=== PATIENT | female | born 1950 | race Caucasian/White ===

== ENCOUNTER 2020-03-30 05:43 | Inpatient (IN) | payer BC, MEDICARE ==
[~2020-03-30] VITALS: Ht 157.5 cm; Wt 94.8 kg
[2020-03-30 05:43] VITALS: BP 157/83
--- NOTE | 2020-03-30 05:43 | NUR ---
ED Nurse Note: pt CAPRICE RA 858 from home c/o right leg pain 01/07 onset today 399. Pt slipped and fell in the bathroom. Pt reports she had prior tib/fib fracture in 2017. Pt is able to moves toes, denies tinlging, numbness. Pt denies impact to head, denies loss of conciousness.
[2020-03-30] MEDS ORDERED: LANTUS SOL100 UNIT/1 SUBQ (05:52)
[2020-03-30] MEDS ORDERED: VITAMIN D325 MC1 PO (05:52)
[2020-03-30] MEDS ORDERED: FOLIC ACID1 MG ORAL (05:52)
[2020-03-30] MEDS ORDERED: CRESTOR10 M2 ORAL (05:52)
[2020-03-30] MEDS ORDERED: RYBELSUS3 MG PO (05:52)
[2020-03-30] MEDS ORDERED: ACTOS45 MG ORAL (05:57)
--- NOTE | 2020-03-30 06:12 | Emergency Room Report ---
History of Present Illness General Chief Complaint: Pain Source: Patient Present Illness HPI The patient recently moved into an apartment. She was trying to urinate hovering over the toilet and slipped. She Ann she twisted her ankle or fell on her leg twisting it she is unable to walk because of pain. She fractured her tibia in 2019. She was in rehab after that and healed completely. She denies hitting her head or loss of consciousness. There is no hip or back pain. She denies numbness. This happened just before calling 911 and being transported by BLS. She reports the pain 02/07 at this time, aching. It is better when she is not trying to weight-bear or ambulate -which she cannot do. The patient is a type II diabetic but this is taking insulin. She denies polyuria or polydipsia. No fevers, chills, sore throat, chest pain, palpitations, nausea, vomiting, diarrhea, dysuria, abdominal pain, shortness of breath, rashes, depression, anxiety, visual changes, dizziness, headache. 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 [employer] Last Menstrual Period: UNK Now: No Reviewed Nursing Documentation: PMH: Agreed; PSxH: Agreed Nursing Documentation-PMH Past Medical History: No History, Except For Hx Diabetes: Yes - DM II Hx Cancer: Yes - L SIDED BREAST CANCER LUMPECTOMY Review of Systems All Other Systems: negative except mentioned in HPI Physical Exam Vital Signs Date Time Temp Pulse Resp B/P (MAP) Pulse Ox O2 Delivery O2 Flow Rate FiO2 03/30/20 05:36 98.1 103 20 157/83 (107) 99 Room Air Sp02 EP Interpretation: reviewed, normal General Appearance: well appearing, no apparent distress, GCS 15 Head: normocephalic, atraumatic Eyes: bilateral eye normal inspection, bilateral eye PERRL, bilateral eye EOMI ENT: moist mucus membranes Neck: normal inspection, full range of motion, supple, no bony tend Respiratory: chest non-tender, lungs clear, normal breath sounds Cardiovascular #1: regular rate, rhythm Cardiovascular #2: 2+ radial (R), 2+ dorsalis pedis (R) Gastrointestinal: normal inspection, normal bowel sounds, non tender, soft Genitourinary: no CVA tenderness Musculoskeletal: normal range of motion, no calf tenderness, tenderness - Ankle area no point or crepitance Neurologic: alert, distal neuro normal, grossly normal Psychiatric: judgement/insight normal, mood/affect normal Skin: normal color, no rash, warm/dry Medical Decision Making Diagnostic Impression: Primary Impression: Fall Qualified Codes: W19.XXXA - Unspecified fall, initial encounter Additional Impressions: Unable to ambulate Sprain of right lower leg Qualified Codes: S83.91XA - Sprain of unspecified site of right knee, initial encounter Diabetes Qualified Codes: E11.9 - Type 2 diabetes mellitus without complications; 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 Differential includes fracture, sprain or contusion. There is no evidence of DVT at this time. There was no loss of consciousness. X-rays are indicated and the patient states she can tolerate tramadol. No laboratory is indicated at this time. An Accu-Chek will be obtained. X-rays show osteopenia and old injury. Accucheck 89. Patient unable to ambulate with crutches. Pain is uncontrolled. Admit. counseling services director consult ordered. EKG sinus rhythm incomplete right bundle branch block left anterior fascicular block LVH. CBC normal. CMP with renal insufficiency. UA clear. Discussed with Dr. Doran. Laboratory Tests Test 03/30/20 06:13 03/30/20 08:55 03/30/20 09:35 03/30/20 16:55 POC Whole Blood Glucose 89 MG/DL (74-106) Pending White Blood Count 8.8 K/UL (4.8-10.8) Red Blood Count 4.72 M/UL (4.20-5.40) Hemoglobin 13.1 G/DL (12.0-16.0) Hematocrit 40.3 % (37.0-47.0) Mean Corpuscular Volume 86 FL (80-99) Mean Corpuscular Hemoglobin 27.7 PG (27.0-31.0) Mean Corpuscular Hemoglobin Concent 32.4 G/DL (32.0-36.0) Red Cell Distribution Width 14.9 % (11.6-14.8) H Platelet Count 253 K/UL (150-450) Mean Platelet Volume 7.1 FL (6.5-10.1) Neutrophils (%) (Auto) 78.2 % (45.0-75.0) H Lymphocytes (%) (Auto) 14.1 % (20.0-45.0) L Monocytes (%) (Auto) 6.1 % (1.0-10.0) Eosinophils (%) (Auto) 1.1 % (0.0-3.0) Basophils (%) (Auto) 0.6 % (0.0-2.0) Prothrombin Time 11.0 SEC (9.30-11.50) Prothrombin Time INR 1.0 (0.9-1.1) Activated Partial Thromboplast Time 26 SEC (23-33) Sodium Level 141 MMOL/L (136-145) Potassium Level 3.6 MMOL/L (3.5-5.1) Chloride Level 104 MMOL/L (98-107) Carbon Dioxide Level 25 MMOL/L (21-32) Blood Urea Nitrogen 30 mg/dL (7-18) H Creatinine 1.4 MG/DL (0.55-1.30) H Estimated Glomerular Filtration Rate 37.2 mL/min (>60) Glucose Level 97 MG/DL (74-106) Uric Acid 5.1 MG/DL (2.6-7.2) Calcium Level 9.5 MG/DL (8.5-10.1) Total Bilirubin 0.4 MG/DL (0.2-1.0) Aspartate Amino Transferase (AST) 20 U/L (15-37) Alanine Aminotransferase (ALT) 19 U/L (12-78) Alkaline Phosphatase 96 U/L (46-116) Total Creatine Kinase 173 U/L (26-308) Troponin I 0.000 ng/mL (0.000-0.056) C-Reactive Protein, Quantitative 0.8 mg/dL (0.00-0.90) Pro-B-Type Natriuretic Peptide 99 pg/mL (0-125) Total Protein 7.6 G/DL (6.4-8.2) Albumin 4.0 G/DL (3.4-5.0) Globulin 3.6 g/dL Albumin/Globulin Ratio 1.1 (1.0-2.7) Urine Color Pale yellow Urine Appearance Slightly cloudy Urine pH 5 (4.5-8.0) Urine Specific [place] 1.025 (1.005-1.035) Urine Protein 3+ (NEGATIVE) H Urine Glucose (UA) Negative (NEGATIVE) Urine Ketones 1+ (NEGATIVE) H Urine Blood 1+ (NEGATIVE) H Urine Nitrite Negative (NEGATIVE) Urine Bilirubin Negative (NEGATIVE) Urine Urobilinogen Normal MG/DL (0.0-1.0) Urine Leukocyte Esterase 2+ (NEGATIVE) H Urine RBC 0-2 /HPF (0 - 2) Urine WBC 2-4 /HPF (0 - 2) Urine Squamous Epithelial Cells Moderate /LPF (NONE/OCC) H Urine Bacteria Moderate /HPF (NONE) H Test 03/30/20 20:17 POC Whole Blood Glucose 102 MG/DL (74-106) EKG Diagnostic Results Rate: normal Rhythm: NSR ST Segments: no acute changes - Incomplete right bundle branch block left anterior fascicular block left ventricular hypertrophy Rhythm Strip Diag. Results EP Interpretation: yes Rhythm: NSR, no PVC's, no ectopy Other X-Ray Diagnostic Results Other X-Ray Diagnostic Results #1: X-Ray ordered: Right ankle # of Views/Limited Vs Complete: 3 View Indication: Pain EP Interpretation: Yes Interpretation: no dislocation, no soft tissue swelling, no fractures, other - Osteopenia and old injury Impression: Other Electronically Signed by: Electronically signed by Júnior Edwards MD Other X-Ray Diagnostic Results #2: X-Ray ordered: Right tib-fib # of Views/Limited Vs Complete: 2 View Indication: Pain EP Interpretation: Yes Interpretation: no dislocation, no soft tissue swelling, no fractures Impression: Other Electronically Signed by: Electronically signed by Júnior Edwards MD Other X-Ray Diagnostic Results #3: X-Ray ordered: Right foot # of Views/Limited Vs Complete: 3 View Indication: Pain EP Interpretation: Yes Interpretation: no dislocation, no soft tissue swelling, no fractures Impression: Other Electronically Signed by: Electronically signed by Júnior Ewdards MD Last Vital Signs Date Time Temp Pulse Resp B/P (MAP) Pulse Ox O2 Delivery O2 Flow Rate FiO2 03/30/20 21:00 Room Air 03/30/20 20:00 98.2 92 18 141/67 (91) 99 Status: improved Disposition: ADMITTED INPATIENT Condition: Serious Júnior Edwards MD Mar 30, 2020 06:12
[2020-03-30] MEDS ORDERED: traMADol 50mg tab ORAL ONE (06:15)
--- NOTE | 2020-03-30 06:25 | NUR ---
ED Nurse Note: donor technician at bedside performing xray foot/ankle
--- NOTE | 2020-03-30 07:01 | NUR ---
HAND-OFF: Report given to CHERRY Patricia. Endorsed care.
--- NOTE | 2020-03-30 07:05 | NUR ---
ED Nurse Note: Report received from CHERRY Hairston. Pt lying comfortably in bed with no signs of distress.
--- NOTE | 2020-03-30 07:19 | Diagnostic Imaging Report ---
EXAM: XR Right Tibia and Fibula, 2 Views CLINICAL HISTORY: TRAUMA TECHNIQUE: Frontal and lateral views of the right tibia and fibula. COMPARISON: No relevant prior studies available. FINDINGS: Severe generalized osteopenia. Alignment of bony structures is within normal limits. No definite radiographic evidence of acute fracture or dislocation. IMPRESSION: No radiographic evidence of acute fracture or dislocation. Severe generalized osteopenia.
--- NOTE | 2020-03-30 07:25 | NUR ---
ED Nurse Note: xray @ bedside
--- NOTE | 2020-03-30 07:27 | Diagnostic Imaging Report ---
EXAM: XR Right Ankle Complete, 3 Views CLINICAL HISTORY: TRAUMA TECHNIQUE: Frontal, lateral and oblique views of the right ankle. COMPARISON: No relevant prior studies available. FINDINGS: Generalized osteopenia. Alignment of bony structures is within normal limits. No radiographic evidence of acute fracture or dislocation. IMPRESSION: No acute fracture or dislocation. Significant generalized osteopenia.
--- NOTE | 2020-03-30 07:34 | NUR ---
ED Nurse Note: per ED MD, okay to give food with medication. [place] provided.
[2020-03-30 07:45] VITALS: BP 151/79
[2020-03-30 09:14] LABS: BASOPHILS % (AUTO) 0.6 % (0.0-2.0); EOSINOPHILS % (AUTO) 1.1 % (0.0-3.0); HEMATOCRIT 40.3 % (37.0-47.0); HEMOGLOBIN 13.1 G/DL (12.0-16.0); LYMPHOCYTES % (AUTO) 14.1 % (20.0-45.0); MEAN CORPUSCULAR VOLUME 86 FL (80-99); MONOCYTES % (AUTO) 6.1 % (1.0-10.0); NEUTROPHILS % (AUTO) 78.2 % (45.0-75.0); PLATELET COUNT 253 K/UL (150-450); RED BLOOD COUNT 4.72 M/UL (4.20-5.40); RED CELL DISTRIBUTION WIDTH 14.9 % (11.6-14.8); WHITE BLOOD COUNT 8.8 K/UL (4.8-10.8)
[2020-03-30 09:34] LABS: ALANINE AMINOTRANSFERASE 19 U/L (12-78); ALBUMIN/GLOBULIN RATIO 1.1 (1.0-2.7); ALKALINE PHOSPHATASE 96 U/L (46-116); ASPARTATE AMINO TRANSFERASE 20 U/L (15-37); BILIRUBIN,TOTAL 0.4 MG/DL (0.2-1.0); BLOOD UREA NITROGEN 30 mg/dL (7-18); CALCIUM 9.5 MG/DL (8.5-10.1); CARBON DIOXIDE 25 MMOL/L (21-32); CHLORIDE 104 MMOL/L (98-107); CREATINE KINASE 173 U/L (26-308); CREATININE 1.4 MG/DL (0.55-1.30); POTASSIUM 3.6 MMOL/L (3.5-5.1); SODIUM 141 MMOL/L (136-145)
--- NOTE | 2020-03-30 09:39 | NUR ---
Russell hernandez in EDM - 03/30/20 at 0940 by ALBERTA ED Nurse Note: Report given to CHERRY Greer on 3E
[2020-03-30 09:44] LABS: APPEARANCE,URINE SLIGHTLY CLOUDY; BILIRUBIN, URINE NEGATIVE (NEGATIVE); COLOR,URINE PALE YELLOW; GLUCOSE, URINE (UA) NEGATIVE (NEGATIVE); KETONES,URINE 1+ (NEGATIVE); LEUKOCYTE ESTERASE ,URINE 2+ (NEGATIVE); NITRITE,URINE NEGATIVE (NEGATIVE); PH,URINE 5 (4.5-8.0); PROTEIN,URINE 3+ (NEGATIVE); UROBILINOGEN,URINE NORMAL MG/DL (0.0-1.0)
--- NOTE | 2020-03-30 09:45 | NUR ---
ED Nurse Note: Report given to CHERRY Greer on 3E
[2020-03-30 10:15] VITALS: BP 130/70
--- NOTE | 2020-03-30 10:15 | NUR ---
ED Nurse Note: pt transferred safely to the unit.
--- NOTE | 2020-03-30 10:15 | NUR ---
NURSE NOTES: Received pt from ER and report from CHERRY Patricia. 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 Checked all belongings with pt. Pt alert and oriented, able to make needs known. RA, no respiratory distress noted. Pt c/o pain on right foot 11/07. Vital signs stable. Skin intact. No redness or swelling noted. [place] pt to room. Educated pt to use for assistance. pt verbalized understanding. Side rails upx2. Bed in low position, locked. Call light and needs within reach. Will follow up with Dr. Doran for admission orders and pain.
--- NOTE | 2020-03-30 10:43 | Diagnostic Imaging Report ---
EXAM: XR Right Foot Complete, 3 or More Views CLINICAL HISTORY: TRAUMA TECHNIQUE: Frontal, lateral and oblique views of the right foot. COMPARISON: None FINDINGS: Bones/joints: No displaced fracture or dislocation identified. Osteopenia. Degenerative changes of the right first MTP joint and interphalangeal joints. Soft tissues: Normal. Other: Vascular calcifications. IMPRESSION: No displaced fracture or dislocation identified.
--- NOTE | 2020-03-30 11:15 | History and Physical Report ---
DATE OF ADMISSION: 03/30/2020 TIME SEEN: At 10 a.m. CONSULTANTS: 1. Dalton Pollack MD. 2. Rocael Bains MD. CHIEF COMPLAINT: Fall, right leg pain, weakness, failure to thrive. BRIEF HISTORY: This is a 69-year-old female, who lives at home by herself. Apparently, was in the restroom, she slipped and then fell on her right leg, was weak, could not get up and was brought to [place], diagnosed with the above, and being admitted to medical floor. Currently, calm, in the ER [facility], no complaint otherwise. REVIEW OF SYSTEMS: No chest pain. No shortness of breath. No nausea, vomiting, or diarrhea. PAST MEDICAL HISTORY: Includes diabetes, breast cancer. PAST SURGICAL HISTORY: Hysterectomy and lumpectomy. MEDICATIONS: Include ibuprofen, tramadol, . ALLERGIES: [place]. SOCIAL HISTORY: No smoking. No alcohol. No intravenous drug abuse. FAMILY HISTORY: Noncontributory. PHYSICAL EXAMINATION: GENERAL: Calm, in the ER [place], oriented x3, slight distress secondary to pain. VITAL SIGNS: Temperature is 97 degrees, pulse , respirations 20, blood pressure 151/79. CARDIOVASCULAR: No murmur. LUNGS: Distant and clear. ABDOMEN: Bowel sounds positive. Nontender, nondistended. EXTREMITIES: No cyanosis or edema. NEUROLOGIC: The patient moves all extremities, slightly weak. LABORATORY DATA: Labs at this time CBC is normal. BMP shows BUN and creatinine is 30/1.4. INR is 1.0. Urinalysis is 3+ protein, 2+ leukocyte esterase. ASSESSMENT: Right leg pain, weak, status post fall, failure to thrive, urinary retention, UTI, diabetes, breast cancer. PLAN: 1. PT, OT, dietary followup. Pain control. 2. We will add ID and follow Dr. Sapp, and antibiotics per Infectious Disease. 3. We will continue blood pressure, blood sugar control. 4. We will continue to follow the patient. 5. CBC and BMP in the morning. Garfield Doran D.O. DR: KANG JOB#: [id number] CC:
--- NOTE | 2020-03-30 11:16 | Consultation ---
History of Present Illness General Date patient seen: Mar 30, 2020 Chief Complaint: Pain Referring physician: Espinoza Reason for Consultation: UTI Present Illness HPI Ms. Castaneda is a 69 yo female with PHMx of DM and Breast CA ( Status post resection) who presented to the ED after a fall. She reports that she feel while trying to urinate. She felt that she twisted her ankle. She does have a history of fracturing her right ankle last year. She denies dysuria, hematuria and polyuria. Her UA showed increased LE and some bacteria was seen. She denies, N/V/D abd, cough and SOB. ID was consulted for UTI PMHx DM Breast CA ( Status post resection) Right Ankle Fx 2018 SocHx Denies E/T/D FamHx Not contributory Allergies: Coded Allergies: No Known Allergies (Unverified , 03/30/20) Medication History Scheduled Cholecalciferol (Vitamin D3) (Vitamin D3*), 25 MCG PO DAILY, (Reported) Folic Acid* (Folic Acid*), 1 MG ORAL DAILY, (Reported) Insulin Glargine (Lantus), 38 SUBQ BEDTIME, (Reported) Pioglitazone Hcl* (Actos*), 45 MG ORAL DAILY, (Reported) Rosuvastatin Calcium* (Crestor*), 10 MG ORAL DAILY, (Reported) Semaglutide (Rybelsus), 0.25 MG PO ONCE A WEEK, (Reported) Patient History Healthcare decision maker Resuscitation status Advanced Directive on File Review of Systems ROS Narrative ROS Negative except as noted in the HPI Physical Exam Last 24 Hour Vital Signs Date Time Temp Pulse Resp B/P (MAP) Pulse Ox O2 Delivery O2 Flow Rate FiO2 03/30/20 07:45 97.8 81 20 151/79 98 Room Air 03/30/20 06:41 98.1 03/30/20 05:43 98.1 77 20 157/83 99 Room Air 03/30/20 05:36 98.1 103 20 157/83 (107) 99 Room Air Intake and Output 03/29/20 03/30/20 19:00 07:00 Intake Total 100 ml Balance 100 ml Intake Oral 100 ml Laboratory Tests Test 03/30/20 06:13 03/30/20 08:55 03/30/20 09:35 POC Whole Blood Glucose 89 MG/DL (74-106) White Blood Count 8.8 K/UL (4.8-10.8) Red Blood Count 4.72 M/UL (4.20-5.40) Hemoglobin 13.1 G/DL (12.0-16.0) Hematocrit 40.3 % (37.0-47.0) Mean Corpuscular Volume 86 FL (80-99) Mean Corpuscular Hemoglobin 27.7 PG (27.0-31.0) Mean Corpuscular Hemoglobin Concent 32.4 G/DL (32.0-36.0) Red Cell Distribution Width 14.9 % (11.6-14.8) H Platelet Count 253 K/UL (150-450) Mean Platelet Volume 7.1 FL (6.5-10.1) Neutrophils (%) (Auto) 78.2 % (45.0-75.0) H Lymphocytes (%) (Auto) 14.1 % (20.0-45.0) L Monocytes (%) (Auto) 6.1 % (1.0-10.0) Eosinophils (%) (Auto) 1.1 % (0.0-3.0) Basophils (%) (Auto) 0.6 % (0.0-2.0) Prothrombin Time 11.0 SEC (9.30-11.50) Prothromb Time International Ratio 1.0 (0.9-1.1) Activated Partial Thromboplast Time 26 SEC (23-33) Sodium Level 141 MMOL/L (136-145) Potassium Level 3.6 MMOL/L (3.5-5.1) Chloride Level 104 MMOL/L (98-107) Carbon Dioxide Level 25 MMOL/L (21-32) Blood Urea Nitrogen 30 mg/dL (7-18) H Creatinine 1.4 MG/DL (0.55-1.30) H Estimat Glomerular Filtration Rate 37.2 mL/min (>60) Glucose Level 97 MG/DL (74-106) Uric Acid 5.1 MG/DL (2.6-7.2) Calcium Level 9.5 MG/DL (8.5-10.1) Total Bilirubin 0.4 MG/DL (0.2-1.0) Aspartate Amino Transf (AST/SGOT) 20 U/L (15-37) Alanine Aminotransferase (ALT/SGPT) 19 U/L (12-78) Alkaline Phosphatase 96 U/L (46-116) Total Creatine Kinase 173 U/L (26-308) Troponin I 0.000 ng/mL (0.000-0.056) C-Reactive Protein, Quantitative 0.8 mg/dL (0.00-0.90) Pro-B-Type Natriuretic Peptide 99 pg/mL (0-125) Total Protein 7.6 G/DL (6.4-8.2) Albumin 4.0 G/DL (3.4-5.0) Globulin 3.6 g/dL Albumin/Globulin Ratio 1.1 (1.0-2.7) Urine Color Pale yellow Urine Appearance Slightly cloudy Urine pH 5 (4.5-8.0) Urine Specific [place] 1.025 (1.005-1.035) Urine Protein 3+ (NEGATIVE) H Urine Glucose (UA) Negative (NEGATIVE) Urine Ketones 1+ (NEGATIVE) H Urine Blood 1+ (NEGATIVE) H Urine Nitrite Negative (NEGATIVE) Urine Bilirubin Negative (NEGATIVE) Urine Urobilinogen Normal MG/DL (0.0-1.0) Urine Leukocyte Esterase 2+ (NEGATIVE) H Urine RBC 0-2 /HPF (0 - 2) Urine WBC 2-4 /HPF (0 - 2) Urine Squamous Epithelial Cells Moderate /LPF (NONE/OCC) H Urine Bacteria Moderate /HPF (NONE) H Height (Feet): 5 Height (Inches): 2.00 Weight (Pounds): 210 Objective Narrative GEN: NAD HEENT: NCAT, MMM, EOMI, No Scleral icterus, Neck: No LAD, Supple LUNGS: CTAB, No W HEART: RRR, S1, S2. ABD: Soft, NT, Mild Distension Skin: No rash,, Normal in color Ext. Some pain with on ambulation right LE NEURO: A/O x 4, No focal deficits Assessment/Plan Assessment/Plan: 69 yo female with PHMx of DM and Breast CA ( Status post resection) who presented to the ED after a fall. Bacteriuria UA Increased LE and Mod V[place] seen Asymptomatic Fall Afebrile No Leukocytosis DM Breast CA ( Status post resection) Right Ankle Fx 2019 PLAN - Monitor off abx - f/u Cultures - Monitor CBC and Temps Thank you for this consult. [facility] will continue to follow Ms. Castaneda while she hiospitalized. Júnior Ríos MD Mar 30, 2020 11:15
[2020-03-30] MEDS ORDERED: Morphine Sulfate 2mg/ml Inj(IV/IM USE ONLY) IVP PRN (11:45)
[2020-03-30 12:00] VITALS: BP 132/71
[2020-03-30] MEDS ORDERED: traMADol 50mg tab ORAL PRN ×2 (14:00→23:00)
--- NOTE | 2020-03-30 14:00 | NUR ---
NURSE NOTES: Pt stated that morphine gave her sudden headache and weird feeling after morphine was give for pain. aware. Received new order. order carried out.
[2020-03-30 16:00] VITALS: BP 135/77
[2020-03-30] MEDS: NovoLOG Insulin Flexpen SUBQ SCH ×2 (16:30→20:23)
[2020-03-30] MEDS ORDERED: Hydromorphone 0.5mg/0.5ml inj IVP PRN (19:00)
--- NOTE | 2020-03-30 19:20 | NUR ---
NURSE NOTES: received pt and report from CHERRY Greer. pt is alert and oriented x 4 with no s/s of acute distress. pt with co pain. will contact dr regarding different options for pain control bec pt has allergy to norco. IV site clean dry and intact and running fluids as ordered. plan of care discussed.
--- NOTE | 2020-03-30 19:33 | NUR ---
NURSE HAND-OFF: Important Events on Shift:[Admission, C/o severe right lower leg pain, Pain not controlled.] Patient Status: [severe pain] Diet: [CCHO] Pending Orders: [] Pending Results/Labs:[] Pending MD notification:[] Latest Vital Signs: Temperature 98.2 , Pulse 79 , B/P 135 /77 , Respiratory Rate 18 , O2 SAT 99 , Room Air, O2 Flow Rate . Vital Sign Comment: [stable] Latest Patel Fall Score: 60 Fall Risk: High Risk Safety Measures: Call light Within Reach, Bed Alarm Zone 1, Side Rails Side Rails x2, Bed position Low and Locked. Fall Precautions: Report given to [CHERRY Chavez].
[2020-03-30 20:00] VITALS: BP 141/67
--- NOTE | 2020-03-30 20:00 | NUR ---
NURSE NOTES: blood sugar reading HS was 102. pt hasnt been eating much all day and she said 102 if a low blood sugar reading for her during this time of night. pt refused the levemir dose of 38 units. sliding scale dose not indicated per protocol.
[2020-03-30] MEDS: Atorvastatin 20mg tab ORAL SCH (20:09)
[2020-03-30] MEDS: Heparin 5000 units/ml inj SUBQ SCH (20:11)
[2020-03-30] MEDS: Levemir Flexpen SUBQ SCH (20:23)
--- NOTE | 2020-03-30 21:53 | NUR ---
NURSE NOTES: patient with allergy to tylenol and hydrocodone. patient was given morphine but pt did not like the feeling after taking the morphine. pt tolerated the tramadol but was asking for higher dose. dilaudid prescribed but note from pharmacy not to give as pt has allergy to norco. Dr. Holt notified, still awaiting orders. Dr. Doran ordered to change interval of tramadol. Dr. Pollack ordered percocet but I notified him about the pts allergies. will continue to follow up on pain management for the patient.
--- NOTE | 2020-03-30 22:50 | NUR ---
NURSE NOTES: clarified allergies with pt. pt states no allergy to tylenol, that she takes tylenol at home, but has allergy to claritin.
--- NOTE | 2020-03-30 23:00 | NUR ---
NURSE NOTES: Dr. Doran with orders to change frequency of tramadol from BIDprn to TIDprn for moderate pain. Received orders from Dr. Pollack for Percocet 5mg for pain. will input orders.
[2020-03-30] MEDS: oxyCODONE HCL/Acetaminophen 5/325mg ORAL PRN (23:16)
[2020-03-31] VITALS: BP 118/51
--- NOTE | 2020-03-31 01:00 | NUR ---
NURSE NOTES: pt turned and absorbant pads changed and glider inserted underneath pt. pt in pain from moving her around. given tramadol prn for her pain. will reassess and follow up.
--- NOTE | 2020-03-31 01:52 | NUR ---
NURSE NOTES: pt with no acute s/s of distress. pt alert and oriented, pain level has decreased since administering the tramadol. pt no longer crying and is conversational. will continue to monitor pain level.
[2020-03-31 04:00] VITALS: BP 132/56
[2020-03-31] MEDS: oxyCODONE HCL/Acetaminophen 5/325mg ORAL PRN ×2 (04:18→18:36)
--- NOTE | 2020-03-31 04:28 | NUR ---
NURSE NOTES: pt complaining of pain, gave percocet but without the fall back, time should have been 0518 already. the scheduled q6hrs was already surpassed at this time. percocet given to pt early administration according to [email or web address]. medication last given 03/30/20 at 2316. next dose due 03/31/20 at 0516. Due to fall back and the 1 hour turn back of the time, the amount of time elapsed in meditech is 1 hour less than the true amount of time that has already elapsed.
[2020-03-31] MEDS: NovoLOG Insulin Flexpen SUBQ SCH ×4 (06:16→20:48)
--- NOTE | 2020-03-31 06:37 | NUR ---
NURSE NOTES: pt tolerating moving herself in bed with assistance better. she states "it doesnt hurt as much as before" pt was taught about the importance of moving around in bed to prevent pressure injuries. throughout the night pt was instructed to wiggle around and move side to side as tolerated but pain was too great to assume side positions. frequent checks and initiatives were made to allow patient to move as much as she can tolerate in bed to reduce pressure to one area. will endorse to day shift nurse pain management and encouragement for pt to move more while in bed.
[2020-03-31 06:52] LABS: BASOPHILS % (AUTO) 0.5 % (0.0-2.0); EOSINOPHILS % (AUTO) 7.6 % (0.0-3.0); HEMATOCRIT 35.9 % (37.0-47.0); HEMOGLOBIN 11.6 G/DL (12.0-16.0); LYMPHOCYTES % (AUTO) 31.8 % (20.0-45.0); MEAN CORPUSCULAR VOLUME 88 FL (80-99); MONOCYTES % (AUTO) 9.1 % (1.0-10.0); NEUTROPHILS % (AUTO) 51.1 % (45.0-75.0); PLATELET COUNT 222 K/UL (150-450); RED BLOOD COUNT 4.09 M/UL (4.20-5.40); RED CELL DISTRIBUTION WIDTH 14.9 % (11.6-14.8); WHITE BLOOD COUNT 5.4 K/UL (4.8-10.8)
--- NOTE | 2020-03-31 07:32 | NUR ---
NURSE HAND-OFF: Important Events on Shift: pain management Patient Status: stable Diet: consistent car Pending Orders: NA Pending Results/Labs:NA Pending MD notification: pain control, severity for PRN percocet Latest Vital Signs: Temperature 98.2 , Pulse 85 , B/P 132 /56 , Respiratory Rate 17 , O2 SAT 93 , Room Air, O2 Flow Rate . Vital Sign Comment: stable through the shift Latest Patel Fall Score: 60 Fall Risk: High Risk Safety Measures: Call light Within Reach, Bed Alarm Zone 1, Side Rails Side Rails x2, Bed position Low and Locked. Fall Precautions: Yellow Socks Patient Fall Education Report given to CHERRY Johnson.
[2020-03-31 07:34] LABS: ALBUMIN/GLOBULIN RATIO 0.8 (1.0-2.7); BILIRUBIN,TOTAL 0.4 MG/DL (0.2-1.0); CALCIUM 8.8 MG/DL (8.5-10.1); CREATININE 1.2 MG/DL (0.55-1.30); POTASSIUM 4.3 MMOL/L (3.5-5.1)
[2020-03-31 08:00] VITALS: BP 132/68
--- NOTE | 2020-03-31 08:00 | NUR ---
NURSE NOTES: Received report from Scott CAREY. Patient is awake and oriented, in no apparent distress but reporting pain in right foot/ankle. Right ankle wrapped and elevated, ice pack applied. IV running IVF per order. Fall precautions maintained. Side rails upx3, bed low and locked, call light within reach.
--- NOTE | 2020-03-31 08:00 | Consultation ---
History of Present Illness General Date patient seen: Mar 31, 2020 Chief Complaint: Referring physician: Reason for Consultation: Present Illness Allergies: Coded Allergies: HYDROCODONE (Verified Allergy, Unknown, 03/30/20) LORATADINE (Verified Allergy, Unknown, 03/30/20) pt states not feeling well and having rashes after taking this medication at a rehab facility Medication History Scheduled Cholecalciferol (Vitamin D3) (Vitamin D3*), 25 MCG PO DAILY, (Reported) Folic Acid* (Folic Acid*), 1 MG ORAL DAILY, (Reported) Insulin Glargine (Lantus), 38 SUBQ BEDTIME, (Reported) Pioglitazone Hcl* (Actos*), 45 MG ORAL DAILY, (Reported) Rosuvastatin Calcium* (Crestor*), 10 MG ORAL DAILY, (Reported) Discontinued Medications Semaglutide (Rybelsus), 0.25 MG PO ONCE A WEEK, (Reported) Discontinued Reason: Pt stopped taking med Patient History Healthcare decision maker Resuscitation status Advanced Directive on File Physical Exam Last 24 Hour Vital Signs Date Time Temp Pulse Resp B/P (MAP) Pulse Ox O2 Delivery O2 Flow Rate FiO2 03/31/20 04:00 98.2 85 17 132/56 (81) 93 03/31/20 00:00 98.2 88 19 118/51 (73) 94 03/30/20 21:00 Room Air 03/30/20 20:00 98.2 92 18 141/67 (91) 99 03/30/20 16:00 98.2 79 18 135/77 (96) 99 03/30/20 15:46 97.8 03/30/20 13:08 97.8 03/30/20 12:12 Room Air 03/30/20 12:00 97.9 81 18 132/71 (91) 98 03/30/20 10:15 98.3 79 18 142/74 98 Room Air 03/30/20 10:15 97.8 85 18 130/70 (90) 99 Intake and Output 03/30/20 03/31/20 19:00 07:00 Intake Total 900 ml Output Total 225 ml Balance 675 ml Intake Oral 300 ml IV Total 600 ml Output Urine Total 225 ml # Voids 1 Laboratory Tests Test 03/30/20 08:55 03/30/20 09:35 03/30/20 16:55 03/30/20 20:17 White Blood Count 8.8 K/UL (4.8-10.8) Red Blood Count 4.72 M/UL (4.20-5.40) Hemoglobin 13.1 G/DL (12.0-16.0) Hematocrit 40.3 % (37.0-47.0) Mean Corpuscular Volume 86 FL (80-99) Mean Corpuscular Hemoglobin 27.7 PG (27.0-31.0) Mean Corpuscular Hemoglobin Concent 32.4 G/DL (32.0-36.0) Red Cell Distribution Width 14.9 % (11.6-14.8) H Platelet Count 253 K/UL (150-450) Mean Platelet Volume 7.1 FL (6.5-10.1) Neutrophils (%) (Auto) 78.2 % (45.0-75.0) H Lymphocytes (%) (Auto) 14.1 % (20.0-45.0) L Monocytes (%) (Auto) 6.1 % (1.0-10.0) Eosinophils (%) (Auto) 1.1 % (0.0-3.0) Basophils (%) (Auto) 0.6 % (0.0-2.0) Prothrombin Time 11.0 SEC (9.30-11.50) Prothromb Time International Ratio 1.0 (0.9-1.1) Activated Partial Thromboplast Time 26 SEC (23-33) Sodium Level 141 MMOL/L (136-145) Potassium Level 3.6 MMOL/L (3.5-5.1) Chloride Level 104 MMOL/L (98-107) Carbon Dioxide Level 25 MMOL/L (21-32) Blood Urea Nitrogen 30 mg/dL (7-18) H Creatinine 1.4 MG/DL (0.55-1.30) H Estimat Glomerular Filtration Rate 37.2 mL/min (>60) Glucose Level 97 MG/DL (74-106) Uric Acid 5.1 MG/DL (2.6-7.2) Calcium Level 9.5 MG/DL (8.5-10.1) Total Bilirubin 0.4 MG/DL (0.2-1.0) Aspartate Amino Transf (AST/SGOT) 20 U/L (15-37) Alanine Aminotransferase (ALT/SGPT) 19 U/L (12-78) Alkaline Phosphatase 96 U/L (46-116) Total Creatine Kinase 173 U/L (26-308) Troponin I 0.000 ng/mL (0.000-0.056) C-Reactive Protein, Quantitative 0.8 mg/dL (0.00-0.90) Pro-B-Type Natriuretic Peptide 99 pg/mL (0-125) Total Protein 7.6 G/DL (6.4-8.2) Albumin 4.0 G/DL (3.4-5.0) Globulin 3.6 g/dL Albumin/Globulin Ratio 1.1 (1.0-2.7) Urine Color Pale yellow Urine Appearance Slightly cloudy Urine pH 5 (4.5-8.0) Urine Specific [place] 1.025 (1.005-1.035) Urine Protein 3+ (NEGATIVE) H Urine Glucose (UA) Negative (NEGATIVE) Urine Ketones 1+ (NEGATIVE) H Urine Blood 1+ (NEGATIVE) H Urine Nitrite Negative (NEGATIVE) Urine Bilirubin Negative (NEGATIVE) Urine Urobilinogen Normal MG/DL (0.0-1.0) Urine Leukocyte Esterase 2+ (NEGATIVE) H Urine RBC 0-2 /HPF (0 - 2) Urine WBC 2-4 /HPF (0 - 2) Urine Squamous Epithelial Cells Moderate /LPF (NONE/OCC) H Urine Bacteria Moderate /HPF (NONE) H POC Whole Blood Glucose Pending 102 MG/DL (74-106) Test 03/31/20 04:35 03/31/20 06:10 White Blood Count 5.4 K/UL (4.8-10.8) Red Blood Count 4.09 M/UL (4.20-5.40) L Hemoglobin 11.6 G/DL (12.0-16.0) L Hematocrit 35.9 % (37.0-47.0) L Mean Corpuscular Volume 88 FL (80-99) Mean Corpuscular Hemoglobin 28.3 PG (27.0-31.0) Mean Corpuscular Hemoglobin Concent 32.3 G/DL (32.0-36.0) Red Cell Distribution Width 14.9 % (11.6-14.8) H Platelet Count 222 K/UL (150-450) Mean Platelet Volume 6.7 FL (6.5-10.1) Neutrophils (%) (Auto) 51.1 % (45.0-75.0) Lymphocytes (%) (Auto) 31.8 % (20.0-45.0) Monocytes (%) (Auto) 9.1 % (1.0-10.0) Eosinophils (%) (Auto) 7.6 % (0.0-3.0) H Basophils (%) (Auto) 0.5 % (0.0-2.0) Sodium Level 142 MMOL/L (136-145) Potassium Level 4.3 MMOL/L (3.5-5.1) Chloride Level 107 MMOL/L (98-107) Carbon Dioxide Level 27 MMOL/L (21-32) Anion Gap 8 mmol/L (5-15) Blood Urea Nitrogen 28 mg/dL (7-18) H Creatinine 1.2 MG/DL (0.55-1.30) Estimat Glomerular Filtration Rate 44.5 mL/min (>60) Glucose Level 123 MG/DL (74-106) H Calcium Level 8.8 MG/DL (8.5-10.1) Total Bilirubin 0.4 MG/DL (0.2-1.0) Aspartate Amino Transf (AST/SGOT) 18 U/L (15-37) Alanine Aminotransferase (ALT/SGPT) 17 U/L (12-78) Alkaline Phosphatase 76 U/L (46-116) Total Protein 6.7 G/DL (6.4-8.2) Albumin 3.0 G/DL (3.4-5.0) L Globulin 3.7 g/dL Albumin/Globulin Ratio 0.8 (1.0-2.7) L POC Whole Blood Glucose 99 MG/DL (74-106) Microbiology Date/Time Source Procedure Growth Status 03/30/20 09:35 Urine,Clean Catch Urine Culture - Preliminary NO GROWTH AFTER 24 HOURS Resulted Height (Feet): 5 Height (Inches): 2.00 Weight (Pounds): 209 Medications Current Medications Medications (Trade) Dose Ordered Sig/Dilip Route PRN Reason Start Time Stop Time Status Last Admin Dose Admin Atorvastatin Calcium (Lipitor) 20 mg BEDTIME ORAL 03/30/20 21:00 06/28/20 20:59 03/30/20 20:09 Dextrose (Dextrose 50%) 25 ml Q30M PRN IV Hypoglycemia 03/30/20 11:45 06/28/20 11:44 Dextrose (Dextrose 50%) 50 ml Q30M PRN IV Hypoglycemia 03/30/20 11:45 06/28/20 11:44 Folic Acid (Folate) 1 mg DAILY ORAL 03/31/20 09:00 04/30/20 08:59 Heparin Sodium (Porcine) (Heparin 5000 units/ml) 5,000 units EVERY 12 HOURS SUBQ 03/30/20 21:00 05/14/20 20:59 03/30/20 20:11 Hydromorphone HCl (Dilaudid) 0.5 mg Q4H PRN IVP For Pain 03/30/20 19:00 04/06/20 18:59 UNV Ibuprofen (Motrin) 600 mg Q8H PRN ORAL For Pain 03/30/20 17:45 04/29/20 17:44 03/30/20 20:10 Insulin Aspart (NovoLOG) BEFORE MEALS AND HS SUBQ 03/30/20 16:30 06/28/20 16:29 Insulin Detemir (Levemir) 38 units BEDTIME SUBQ 03/30/20 21:00 06/28/20 20:59 Ondansetron HCl (Zofran) 4 mg Q4H PRN IVP Nausea & Vomiting 03/30/20 23:00 04/29/20 22:59 03/31/20 05:03 Oxycodone/ Acetaminophen (Percocet 5-325) 1 tab Q6H PRN ORAL pain 03/30/20 23:00 04/06/20 22:59 03/31/20 04:18 Pioglitazone HCl (Actos) 45 mg DAILY ORAL 03/31/20 09:00 04/30/20 08:59 Sodium Chloride 1,000 ml @ 60 mls/hr [id number] IV 03/30/20 13:00 04/29/20 12:59 03/31/20 04:54 Tramadol HCl (Ultram) 50 mg TIDPRN PRN ORAL moderate pain 4-6 03/30/20 23:00 04/06/20 13:59 03/31/20 00:56 Vitamin D (Vitamin D) 1,000 intlu DAILY ORAL 03/31/20 09:00 04/30/20 08:59 Assessment/Plan Assessment/Plan: (1) Right ankle pain (2) Right ankle sprain s/p fall seen dictated Bernard Elam Mar 31, 2020 08:00
--- NOTE | 2020-03-31 08:50 | NUR ---
NURSE NOTES: New activity order received from Dr. Doran. Order read back and entered. PT notified.
--- NOTE | 2020-03-31 09:00 | Consultation ---
DATE OF CONSULTATION: 03/31/2020 PAIN MANAGEMENT CONSULTATION CONSULTING PHYSICIAN: Daniel Holt MD. REFERRING PHYSICIAN: Garfield Doran DO. PHYSICIAN RIGGING HELPER: UYEN Mccann. CHIEF COMPLAINT: Right foot pain. HISTORY OF PRESENT ILLNESS: This is a 69-year-old female who is being seen on the Med/Surg floor of [facility] for initial pain management consultation. The patient was admitted under the care of Dr. Doran status post fall which occurred yesterday. It is a constant, acute pain, rating it as 7/10, describing the pain as an aching, throbbing pain, increasing with movement and touch and reduced with medication. She states that she had a fall in the bathroom of the [facility] in [place] and since that time has been having severe ankle pain and foot pain. X-rays were performed showing no displacement or fractures and is waiting to be evaluated by the orthopedic surgeon. The patient had allergies to hydrocodone and was given morphine and tramadol which patient the reports has not been effective in relieving the pain, morphine made her feel fine. Dilaudid was ordered but was never given. She was started on Percocet 5/325 one tablet every six hours as needed for pain which the patient reports has been adequately relieving pain. We were consulted so that the patient would have adequate pain control while here in the hospital. PAST MEDICAL HISTORY: Diabetes mellitus, breast cancer, and high cholesterol. PAST SURGICAL HISTORY: Hysterectomy and lumpectomy removal. SOCIAL HISTORY: Denies smoking tobacco, drinking alcohol, or IV drug use. ALLERGIES: [place] and loratadine. MEDICATIONS: Crestor, insulin, Actos, folic acid. REVIEW OF SYSTEMS: Denies rash, fever, chills, sweating, dizziness, drowsiness, blurred vision, sore throat, change in her weight. No shortness of breath or chest pain. No nausea, vomiting, diarrhea, or blood in the stool or urine. No dysuria. PHYSICAL EXAMINATION: GENERAL: Alert, awake, and oriented. VITAL SIGNS: Blood pressure 132/56, heart rate 85, oxygen saturation 98%, respiratory rate 18, temperature 98.2 degrees Fahrenheit. HEENT: PERRLA. NECK: Range of motion is full in all directions. No tenderness to paracervical muscles. No adenopathy. LUNGS: Decreased breath sounds bilaterally. HEART: Regular. ABDOMEN: Obese. BACK: Range of motion is full in flexion and extension. EXTREMITIES: Upper and lower extremity range of motion is decreased due to the patient's condition. No cyanosis. No clubbing. Sensory is reduced. Reflexes are not obtainable. No adenopathy with tenderness to palpation of the right ankle decreased range of motion, slight swelling noted. ASSESSMENT AND PLAN: This is a 69-year-old female with the right ankle sprain status post fall. The patient will be continued on Percocet as needed. We will discontinue the tramadol, Dilaudid, and morphine. We will add lidocaine patch to be applied to the ankle at the site of the pain 12 hours on and 12 hours off and Bengay cream every 6 hours. The patient was discussed with Dr. Holt and Dr. Holt concurred. We will follow the patient. Thank you very much for the courtesy of this consultation. Daniel Holt M.D. UYEN Mccann DR: Sury JOB#: [id number] CC: YAHIR
--- NOTE | 2020-03-31 09:11 | General Progress Note ---
Subjective Allergies: Coded Allergies: HYDROCODONE (Verified Allergy, Unknown, 03/30/20) LORATADINE (Verified Allergy, Unknown, 03/30/20) pt states not feeling well and having rashes after taking this medication at a rehab facility All Systems: reviewed and negative except above Subjective sl general pain Objective Last 24 Hour Vital Signs Date Time Temp Pulse Resp B/P (MAP) Pulse Ox O2 Delivery O2 Flow Rate FiO2 03/31/20 08:00 98.6 87 16 132/68 (89) 96 03/31/20 04:00 98.2 85 17 132/56 (81) 93 03/31/20 00:00 98.2 88 19 118/51 (73) 94 03/30/20 21:00 Room Air 03/30/20 20:00 98.2 92 18 141/67 (91) 99 03/30/20 16:00 98.2 79 18 135/77 (96) 99 03/30/20 15:46 97.8 03/30/20 13:08 97.8 03/30/20 12:12 Room Air 03/30/20 12:00 97.9 81 18 132/71 (91) 98 03/30/20 10:15 98.3 79 18 142/74 98 Room Air 03/30/20 10:15 97.8 85 18 130/70 (90) 99 Intake and Output 03/30/20 03/31/20 19:00 07:00 Intake Total 900 ml Output Total 225 ml Balance 675 ml Intake Oral 300 ml IV Total 600 ml Output Urine Total 225 ml # Voids 1 Laboratory Tests 03/30/20 09:35: Urine Color Pale yellow, Urine Appearance Slightly cloudy, Urine pH 5, Urine Specific [place] 1.025, Urine Protein 3+H, Urine Glucose (UA) Negative, Urine K etones 1+H, Urine Blood 1+H, Urine Nitrite Negative, Urine Bilirubin Negative, Urine Urobilinogen Normal, Urine Leukocyte Esterase 2+H, Urine RBC 0-2, Urine WBC 2-4, Urine Squamous Epithelial Cells ModerateH, Urine Bacteria ModerateH 03/30/20 16:55: POC Whole Blood Glucose [Pending] 03/30/20 20:17: POC Whole Blood Glucose 102 03/31/20 04:35: White Blood Count 5.4, Red Blood Count 4.09L, Hemoglobin 11.6L, Hematocrit 35.9L , Mean Corpuscular Volume 88, Mean Corpuscular Hemoglobin 28.3, Mean Corpuscular Hemoglobin Concent 32.3, Red Cell Distribution Width 14.9H, Platelet Count 222, Mean Platelet Volume 6.7, Neutrophils (%) (Auto) 51.1, Lymphocytes (%) (Auto) 31.8, Monocytes (%) (Auto) 9.1, Eosinophils (%) (Auto) 7.6H, Basophils (%) (Auto) 0.5, Sodium Level 142, Potassium Level 4.3, Chloride Level 107, Carbon Dioxide Level 27, Anion Gap 8, Blood Urea Nitrogen 28H, Creatinine 1.2, Estimat Glomerular Filtration Rate 44.5, Glucose Level 123H, Calcium Level 8.8, Total Bilirubin 0.4, Aspartate Amino Transf (AST/SGOT) 18, Alanine Aminotransferase (ALT/SGPT) 17, Alkaline Phosphatase 76, Total Protein 6.7, Albumin 3.0L, Globulin 3.7, Albumin/Globulin Ratio 0.8L 03/31/20 06:10: POC Whole Blood Glucose 99 Height (Feet): 5 Height (Inches): 2.00 Weight (Pounds): 209 General Appearance: lethargic EENT: normal ENT inspection Neck: normal alignment Cardiovascular: normal peripheral pulses, normal rate, regular rhythm Respiratory/Chest: chest wall non-tender, lungs clear, normal breath sounds Abdomen: normal bowel sounds, non tender, soft Extremities: normal inspection Edema: no edema noted Arm (L), no edema noted Arm (R), no edema noted Leg (L), no edema noted Leg (R), no edema noted Pedal (L), no edema noted Pedal (R), no edema noted Generalized Neurologic: motor weakness Skin: normal pigmentation, warm/dry Assessment/Plan Problem List: (1) Diabetes ICD Codes: E11.9 - Type 2 diabetes mellitus without complications SNOMED: 53715011, 643011546, [id number] Qualifiers: Qualified Codes: E11.9 - Type 2 diabetes mellitus without complications; Z79.4 - epic kaleidoscope analyst (current) use of insulin (2) Renal insufficiency ICD Codes: N28.9 - Disorder of kidney and ureter, unspecified SNOMED: 478254074, 720914878 (3) Fall ICD Codes: W19.XXXA - Unspecified fall, initial encounter SNOMED: 4586540, 375199762, [id number] Qualifiers: Qualified Codes: W19.XXXA - Unspecified fall, initial encounter (4) Unable to ambulate ICD Codes: R26.2 - Difficulty in walking, not elsewhere classified SNOMED: 453305195, 138201331, [id number] (5) Sprain of right lower leg ICD Codes: S83.91XA - Sprain of unspecified site of right knee, initial encounter SNOMED: 276631784, 178740749, [id number] Qualifiers: Qualified Codes: S83.91XA - Sprain of unspecified site of right knee, initial encounter Status: unchanged Assessment/Plan: pt diet pain control abx cbc bmp am юлияu Garfield Mckay DO Mar 31, 2020 09:10
[2020-03-31] MEDS: Analgesic Balm 15gm TOPIC SCH ×4 (10:03→20:48)
[2020-03-31] MEDS: Vitamin D 1000 IU Tab ORAL SCH (10:03)
[2020-03-31] MEDS: Heparin 5000 units/ml inj SUBQ SCH ×2 (10:05→20:48)
[2020-03-31 12:00] VITALS: BP 156/72
[2020-03-31] MEDS ORDERED: ozempic (13:49)
[2020-03-31 16:00] VITALS: BP 153/71
--- NOTE | 2020-03-31 16:13 | NUR ---
PT Note PT simon completed, treatment initiated. Patient c/o severe pain on her right ankle/foot and tends to anticipate the pain, crying loudly with attempts to move her RLE. She requires assist in bed mobility; unable to stand and ambulate. Patient needs physical therapy to increase her muscle strength and decrease right LE pain to improve her functional mobility and gait. Addendum: 03/31/20 at 1614 by TONJA VENEGAS PT Amended: Links added.
--- NOTE | 2020-03-31 16:44 | NUR ---
NURSE NOTES: Paged Dr. Ríos regarding temperature 100.3, HR 103, and saturation of 90% on room air, patient denies SOB/CP and has no cough. Placed patient on 2L NC.
[2020-03-31] MEDS ORDERED: 1/2 NS 1000ml IV ONE (16:51)
--- NOTE | 2020-03-31 18:00 | NUR ---
NURSE NOTES: Received callback from Dr. Ríos at 1734. New orders for COVID swab, blood cultures, O2, Tylenol, and IS received from . Orders read back and entered. Patient swabbed for COVID and swab transported to lab. Patient provided with IS and instructed in use. Patient saturating 94-95% on 2L NC. Patient denies SOB/respiratory distress, patient is on continuous pulseox monitoring at this time.
--- NOTE | 2020-03-31 18:59 | NUR ---
NURSE NOTES: Received call from Adrianna in lab. Per Adrianna, COVID-19 swab is NEGATIVE.
--- NOTE | 2020-03-31 19:33 | NUR ---
NURSE HAND-OFF: Important Events on Shift: PT, COVID swab negative, patient placed on O2. Patient Status: stable Diet: CCHO Pending Orders: blood cultures x2 Pending Results/Labs: blood cultures Pending MD notification: N/A Latest Vital Signs: Temperature 99.3 , Pulse 103 , B/P 153 /71 , Respiratory Rate 18 , O2 SAT 95 , Room Air, O2 Flow Rate 2.0 . Vital Sign Comment: VS stable Latest Patel Fall Score: 80 Fall Risk: High Risk Safety Measures: Call light Within Reach, Bed Alarm Zone 1, Side Rails Side Rails x3, Bed position Low and Locked. Fall Precautions: Yellow Socks Door Sign Patient Fall Education Report given to Annita CAREY.
--- NOTE | 2020-03-31 19:36 | NUR ---
NURSE NOTES: Patient received in bed, on o2 via NC, no acute cardiorespiratory distress, oxygen saturation at 94%; verbalized consistent pain on right foot. Right leg elevated on pillow with lidocaine patch. Patient instructed to use incentive spirometer while awake, verbalized understanding. Call light within reach. Will continue to monitor.
[2020-03-31 20:00] VITALS: BP 124/69
[2020-03-31] MEDS: Atorvastatin 20mg tab ORAL SCH (20:47)
[2020-03-31] MEDS: Levemir Flexpen SUBQ SCH (20:48)
--- NOTE | 2020-03-31 21:13 | NUR ---
NURSE NOTES: Patient refused levemir as ordered; educated re: indications risks and benefits of the medication. Patient verbalized understanding and stated that her blood sugar normally goes down during the night even without levemir. Will continue to monitor.
[2020-04-01 00:28] VITALS: BP 124/62
[2020-04-01] MEDS: oxyCODONE HCL/Acetaminophen 5/325mg ORAL PRN ×3 (00:31→18:18)
[2020-04-01 03:55] VITALS: BP 127/67
--- NOTE | 2020-04-01 04:07 | NUR ---
NURSE NOTES: Patient c/o itching on left buttock, noted with blanchable redness, no open wound. Calazime cream applied for protection. Will monitor. Patient also c/o left lower back pain and is requesting a patch or bengay cream for it. Left Message to UYEN Elam.
[2020-04-01] MEDS: NovoLOG Insulin Flexpen SUBQ SCH ×4 (06:24→20:05)
[2020-04-01 06:44] LABS: BASOPHILS % (AUTO) 0.9 % (0.0-2.0); EOSINOPHILS % (AUTO) 8.4 % (0.0-3.0); HEMATOCRIT 30.7 % (37.0-47.0); HEMOGLOBIN 9.8 G/DL (12.0-16.0); LYMPHOCYTES % (AUTO) 33.4 % (20.0-45.0); MEAN CORPUSCULAR VOLUME 88 FL (80-99); MONOCYTES % (AUTO) 9.5 % (1.0-10.0); NEUTROPHILS % (AUTO) 47.8 % (45.0-75.0); PLATELET COUNT 169 K/UL (150-450); RED CELL DISTRIBUTION WIDTH 14.4 % (11.6-14.8); WHITE BLOOD COUNT 4.9 K/UL (4.8-10.8)
--- NOTE | 2020-04-01 07:00 | NUR ---
NURSE NOTES: Patient was unable to void. Patient verbalized "feeling of needing to go" Tried running water, warm towel over the pelvis and sitting up the patient; ineffective. Bladder scan showed [address] Doran, awaiting for response.
--- NOTE | 2020-04-01 07:30 | NUR ---
NURSE HAND-OFF: Important Events on Shift:[pain management; back and right foot pain; unable to void-straight cath ordered- patient wants to finish breakfast first] Patient Status: [eating breakfast] Diet: [CCHO medium] Pending Orders: [] Pending Results/Labs:[] Pending MD notification:[Awaiting clarification from Marialuisa re: patch/cream for the back pain] Latest Vital Signs: Temperature 97.8 , Pulse 89 , B/P 127 /67 , Respiratory Rate 18 , O2 SAT 94 , Nasal Cannula, O2 Flow Rate 2.0 . Vital Sign Comment: [] Latest Patel Fall Score: 60 Fall Risk: High Risk Safety Measures: Call light Within Reach, Bed Alarm Zone 1, Side Rails Side Rails x3, Bed position Low and Locked. Fall Precautions: Yellow Socks Door Sign Patient Fall Education Report given to [Palma CAREY].
--- NOTE | 2020-04-01 07:30 | NUR ---
NURSE NOTES: Received report from Geoff RN, pt a/a/o x4 laying in bed with no signs of distress or other issues at this time. per machine finisher report pt was not able to void, bladder scan done with 614ml noted. per MD orders to straight cath Q6H PRN if residual more than 300ml. RN will review order and will carry on orders as indicated. call light within reach, bed in lowest position. I will f/u as needed.
[2020-04-01 08:00] VITALS: BP 110/65
--- NOTE | 2020-04-01 08:40 | General Progress Note ---
Subjective Date patient seen: Apr 01, 2020 Time patient seen: 07:30 - am Allergies: Coded Allergies: HYDROCODONE (Verified Allergy, Unknown, 03/30/20) LORATADINE (Verified Allergy, Unknown, 03/30/20) pt states not feeling well and having rashes after taking this medication at a rehab facility Subjective HISTORY OF PRESENT ILLNESS: This is a 69-year-old female who is being seen on the Med/Surg floor of [facility]. Patient showing no signs of pain or distress. Pain has been at a moderate level. No new complaints at this time. REVIEW OF SYSTEMS: Denies rash, fever, chills, sweating, dizziness, drowsiness, blurred vision, sore throat, change in her weight. No shortness of breath or chest pain. No nausea, vomiting, diarrhea, or blood in the stool or urine. No dysuria. Objective Last 24 Hour Vital Signs Date Time Temp Pulse Resp B/P (MAP) Pulse Ox O2 Delivery O2 Flow Rate FiO2 04/01/20 03:55 97.8 89 127/67 (87) 04/01/20 00:28 98.0 83 124/62 (82) 03/31/20 21:00 Nasal Cannula 2.0 03/31/20 20:19 94 Nasal Cannula 2.0 28 03/31/20 20:00 99.3 103 18 124/69 (87) 94 03/31/20 19:14 95 Nasal Cannula 2.0 28 03/31/20 16:45 99.3 03/31/20 16:00 100.3 103 18 153/71 (98) 90 03/31/20 12:00 99.6 97 18 156/72 (100) 92 03/31/20 09:00 Room Air Intake and Output 03/31/20 04/01/20 19:00 07:00 Intake Total 1320 ml 900 ml Output Total 550 ml 50 ml Balance 770 ml 850 ml Intake Oral 600 ml 200 ml IV Total 720 ml 700 ml Output Urine Total 550 ml 50 ml Laboratory Tests 03/31/20 12:03: POC Whole Blood Glucose 82 03/31/20 16:32: POC Whole Blood Glucose 127H 03/31/20 20:46: POC Whole Blood Glucose 138H 04/01/20 04:55: White Blood Count 4.9, Red Blood Count 3.50L, Hemoglobin 9.8L, Hematocrit 30.7L, Mean Corpuscular Volume 88, Mean Corpuscular Hemoglobin 28.1, Mean Corpuscular Hemoglobin Concent 32.1, Red Cell Distribution Width 14.4, Platelet Count 169, Mean Platelet Volume 6.3L, Neutrophils (%) (Auto) 47.8, Lymphocytes (%) (Auto) 33.4, Monocytes (%) (Auto) 9.5, Eosinophils (%) (Auto) 8.4H, Basophils (%) (Auto) 0.9 04/01/20 06:06: POC Whole Blood Glucose 133H Height (Feet): 5 Height (Inches): 2.00 Weight (Pounds): 209 Objective PHYSICAL EXAMINATION: GENERAL: Alert, awake, and oriented. LUNGS: Decreased breath sounds bilaterally. HEART: S1S2 Regular. ABDOMEN: Obese EXTREMITIES: with tenderness to palpation of the right ankle decreased range of motion, slight swelling noted. NEURO: No changes Assessment/Plan Assessment/Plan: (1) Right ankle pain (2) Right ankle sprain s/p fall Patient to be continued on Percocet D/w Dr. Holt and he concurred. Bernard Elam Apr 01, 2020 08:40
--- NOTE | 2020-04-01 09:27 | General Progress Note ---
Subjective Constitutional: Reports: weakness Allergies: Coded Allergies: HYDROCODONE (Verified Allergy, Unknown, 03/30/20) LORATADINE (Verified Allergy, Unknown, 03/30/20) pt states not feeling well and having rashes after taking this medication at a rehab facility All Systems: reviewed and negative except above Subjective sl general pain Objective Last 24 Hour Vital Signs Date Time Temp Pulse Resp B/P (MAP) Pulse Ox O2 Delivery O2 Flow Rate FiO2 04/01/20 03:55 97.8 89 127/67 (87) 04/01/20 00:28 98.0 83 124/62 (82) 03/31/20 21:00 Nasal Cannula 2.0 03/31/20 20:19 94 Nasal Cannula 2.0 28 03/31/20 20:00 99.3 103 18 124/69 (87) 94 03/31/20 19:14 95 Nasal Cannula 2.0 28 03/31/20 16:45 99.3 03/31/20 16:00 100.3 103 18 153/71 (98) 90 03/31/20 12:00 99.6 97 18 156/72 (100) 92 Intake and Output 03/31/20 04/01/20 19:00 07:00 Intake Total 1320 ml 900 ml Output Total 550 ml 50 ml Balance 770 ml 850 ml Intake Oral 600 ml 200 ml IV Total 720 ml 700 ml Output Urine Total 550 ml 50 ml Laboratory Tests 03/31/20 12:03: POC Whole Blood Glucose 82 03/31/20 16:32: POC Whole Blood Glucose 127H 03/31/20 20:46: POC Whole Blood Glucose 138H 04/01/20 04:55: White Blood Count 4.9, Red Blood Count 3.50L, Hemoglobin 9.8L, Hematocrit 30.7L, Mean Corpuscular Volume 88, Mean Corpuscular Hemoglobin 28.1, Mean Corpuscular Hemoglobin Concent 32.1, Red Cell Distribution Width 14.4, Platelet Count 169, Mean Platelet Volume 6.3L, Neutrophils (%) (Auto) 47.8, Lymphocytes (%) (Auto) 33.4, Monocytes (%) (Auto) 9.5, Eosinophils (%) (Auto) 8.4H, Basophils (%) (Auto) 0.9 04/01/20 06:06: POC Whole Blood Glucose 133H Height (Feet): 5 Height (Inches): 2.00 Weight (Pounds): 209 General Appearance: lethargic EENT: normal ENT inspection Neck: normal alignment Cardiovascular: normal peripheral pulses, normal rate, regular rhythm Respiratory/Chest: chest wall non-tender, lungs clear, normal breath sounds Abdomen: normal bowel sounds, non tender, soft Extremities: normal inspection Edema: no edema noted Arm (L), no edema noted Arm (R), no edema noted Leg (L), no edema noted Leg (R), no edema noted Pedal (L), no edema noted Pedal (R), no edema noted Generalized Neurologic: responsive, motor weakness Skin: normal pigmentation, warm/dry Assessment/Plan Problem List: (1) Diabetes ICD Codes: E11.9 - Type 2 diabetes mellitus without complications SNOMED: 51525757, 935826762, [id number] Qualifiers: Qualified Codes: E11.9 - Type 2 diabetes mellitus without complications; 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 (2) Renal insufficiency ICD Codes: N28.9 - Disorder of kidney and ureter, unspecified SNOMED: 481674377, 291301286 (3) Fall ICD Codes: W19.XXXA - Unspecified fall, initial encounter SNOMED: 3411944, 195569285, [id number] Qualifiers: Qualified Codes: W19.XXXA - Unspecified fall, initial encounter (4) Unable to ambulate ICD Codes: R26.2 - Difficulty in walking, not elsewhere classified SNOMED: 150272338, 883741807, [id number] (5) Sprain of right lower leg ICD Codes: S83.91XA - Sprain of unspecified site of right knee, initial encounter SNOMED: 927341970, 299777048, [id number] Qualifiers: Qualified Codes: S83.91XA - Sprain of unspecified site of right knee, initial encounter Status: unchanged Assessment/Plan: pt diet pain control abx cbc bmp am aru Garfield Mckay DO Apr 01, 2020 09:27
[2020-04-01] MEDS: Vitamin D 1000 IU Tab ORAL SCH (09:35)
[2020-04-01] MEDS: Heparin 5000 units/ml inj SUBQ SCH ×2 (09:36→20:05)
[2020-04-01] MEDS: Analgesic Balm 15gm TOPIC SCH ×4 (09:41→20:08)
--- NOTE | 2020-04-01 10:33 | NUR ---
RD ASSESSMENT & RECOMMENDATIONS SEE CARE ACTIVITY FOR COMPLETE ASSESSMENT DAILY ESTIMATED NEEDS: Needs based on DM, obese/ 61kg abw 23-28 kcals/kg 4510-6760 total kcals 1-1.5 g protein/kg 61-92 g total protein 25-30 mL/kg 5217-3721 total fluid mLs NUTRITION DIAGNOSIS: Altered nutrition related lab values R/T diabetes as evidenced by mildly elev POC glu (82-138), on oral hypoglycemic + long acting + short acting insulin. [facility] PO DIET RECOMMENDATIONS: [facility] LOW ADDITIONAL RECOMMENDATIONS: * Calibrated bedscale wt for accurate CBW * Consider holding or DC HS Levemir to prevent hypoglycemia in AM frandy w/ variable intake * Check A1C for eval of glycemic control
[2020-04-01 11:29] LABS: CALCIUM 8.4 MG/DL (8.5-10.1); CREATININE 1.3 MG/DL (0.55-1.30)
[2020-04-01 12:00] VITALS: BP 109/55
--- NOTE | 2020-04-01 13:13 | Infectious Diseases Prog Note ---
Assessment/Plan Assessment/Plan: 69 yo female with PHMx of DM and Breast CA ( Status post resection) who presented to the ED after a fall. Pyuria UA Increased LE and Mod Vinny seen; ucx NTD Asymptomatic sp Fall Low grade fever x 1 No Leukocytosis DM Breast CA ( Status post resection) Right Ankle Fx 2019 PLAN - Monitor off abx unless persistent febrile or high fever, leukocytosis and/or HD instability - f/u Cultures - Monitor CBC and Temps -CXR Thank you for this consult. [facility] will continue to follow Ms. Castaneda while she hiospitalized. Subjective Allergies: Coded Allergies: HYDROCODONE (Verified Allergy, Unknown, 03/30/20) LORATADINE (Verified Allergy, Unknown, 03/30/20) pt states not feeling well and having rashes after taking this medication at a rehab facility Tm 100.3; afebrile in ~24hrs no leukocytosis at 2l NC Cr improving Objective Last 24 Hour Vital Signs Date Time Temp Pulse Resp B/P (MAP) Pulse Ox O2 Delivery O2 Flow Rate FiO2 04/01/20 12:00 98.0 77 18 109/55 (73) 95 04/01/20 10:06 97.8 04/01/20 09:00 Nasal Cannula 2.0 04/01/20 08:00 98.3 73 18 110/65 (80) 98 04/01/20 03:55 97.8 89 127/67 (87) 04/01/20 00:28 98.0 83 124/62 (82) 03/31/20 21:00 Nasal Cannula 2.0 03/31/20 20:19 94 Nasal Cannula 2.0 28 03/31/20 20:00 99.3 103 18 124/69 (87) 94 03/31/20 19:14 95 Nasal Cannula 2.0 28 03/31/20 16:45 99.3 03/31/20 16:00 100.3 103 18 153/71 (98) 90 Height (Feet): 5 Height (Inches): 2.00 Weight (Pounds): 209 GEN: NAD HEENT: NCAT, MMM, EOMI, No Scleral icterus, Neck: No LAD, Supple LUNGS: CTAB, No W HEART: RRR, S1, S2. ABD: Soft, NT, Mild Distension Skin: No rash,, Normal in color Ext. Some pain with on ambulation right LE NEURO: A/O x 4, No focal deficits Microbiology Date/Time Source Procedure Growth Status 03/31/20 17:45 Nasopharynx SARS-CoV-2 RdRp Gene Assay - Final Complete 03/30/20 09:35 Urine,Clean Catch Urine Culture - Preliminary NO GROWTH AFTER 24 HOURS Resulted Laboratory Tests Test 03/31/20 16:32 03/31/20 20:46 04/01/20 04:55 04/01/20 06:06 POC Whole Blood Glucose 127 MG/DL (74-106) H 138 MG/DL (74-106) H 133 MG/DL (74-106) H White Blood Count 4.9 K/UL (4.8-10.8) Red Blood Count 3.50 M/UL (4.20-5.40) L Hemoglobin 9.8 G/DL (12.0-16.0) L Hematocrit 30.7 % (37.0-47.0) L Mean Corpuscular Volume 88 FL (80-99) Mean Corpuscular Hemoglobin 28.1 PG (27.0-31.0) Mean Corpuscular Hemoglobin Concent 32.1 G/DL (32.0-36.0) Red Cell Distribution Width 14.4 % (11.6-14.8) Platelet Count 169 K/UL (150-450) Mean Platelet Volume 6.3 FL (6.5-10.1) L Neutrophils (%) (Auto) 47.8 % (45.0-75.0) Lymphocytes (%) (Auto) 33.4 % (20.0-45.0) Monocytes (%) (Auto) 9.5 % (1.0-10.0) Eosinophils (%) (Auto) 8.4 % (0.0-3.0) H Basophils (%) (Auto) 0.9 % (0.0-2.0) Test 04/01/20 10:50 04/01/20 11:50 Sodium Level 137 MMOL/L (136-145) Potassium Level 4.0 MMOL/L (3.5-5.1) Chloride Level 103 MMOL/L (98-107) Carbon Dioxide Level 27 MMOL/L (21-32) Anion Gap 7 mmol/L (5-15) Blood Urea Nitrogen 28 mg/dL (7-18) H Creatinine 1.3 MG/DL (0.55-1.30) Estimat Glomerular Filtration Rate 40.6 mL/min (>60) Glucose Level 168 MG/DL (74-106) H Calcium Level 8.4 MG/DL (8.5-10.1) L POC Whole Blood Glucose 159 MG/DL (74-106) H Current Medications Medications (Trade) Dose Ordered Sig/Dilip Route PRN Reason Start Time Stop Time Status Last Admin Dose Admin Acetaminophen (Tylenol) 650 mg Q6H PRN ORAL TEMP >100.4 03/31/20 17:45 04/30/20 17:44 Atorvastatin Calcium (Lipitor) 20 mg BEDTIME ORAL 03/30/20 21:00 06/28/20 20:59 03/31/20 20:47 Dextrose (Dextrose 50%) 25 ml Q30M PRN IV Hypoglycemia 03/30/20 11:45 06/28/20 11:44 Dextrose (Dextrose 50%) 50 ml Q30M PRN IV Hypoglycemia 03/30/20 11:45 06/28/20 11:44 Folic Acid (Folate) 1 mg DAILY ORAL 03/31/20 09:00 04/30/20 08:59 04/01/20 09:35 Heparin Sodium (Porcine) (Heparin 5000 units/ml) 5,000 units EVERY 12 HOURS SUBQ 03/30/20 21:00 05/14/20 20:59 04/01/20 09:36 Ibuprofen (Motrin) 600 mg Q8H PRN ORAL For Pain 03/30/20 17:45 04/29/20 17:44 04/01/20 06:23 Insulin Aspart (NovoLOG) BEFORE MEALS AND HS SUBQ 03/30/20 16:30 06/28/20 16:29 04/01/20 12:18 Insulin Detemir (Levemir) 38 units BEDTIME SUBQ 03/30/20 21:00 06/28/20 20:59 Lidocaine (Lidoderm 5% PATCH) 1 patch DAILY TDERMAL 03/31/20 09:00 06/29/20 08:59 04/01/20 09:38 Menthol/Methyl Salicylate (Bengay) 1 applic FOUR TIMES A DAY TOPIC 03/31/20 10:00 04/30/20 09:59 04/01/20 12:19 Ondansetron HCl (Zofran) 4 mg Q4H PRN IVP Nausea & Vomiting 03/30/20 23:00 04/29/20 22:59 03/31/20 05:03 Oxycodone/ Acetaminophen (Percocet 5-325) 1 tab Q6H PRN ORAL pain 03/30/20 23:00 04/06/20 22:59 04/01/20 09:36 Pioglitazone HCl (Actos) 45 mg DAILY ORAL 03/31/20 09:00 04/30/20 08:59 04/01/20 09:35 Sodium Chloride 1,000 ml @ 60 mls/hr [id number] IV 03/30/20 13:00 04/29/20 12:59 03/31/20 20:49 Vitamin D (Vitamin D) 1,000 intlu DAILY ORAL 03/31/20 09:00 04/30/20 08:59 04/01/20 09:35 Janet Cazares M.D. Apr 01, 2020 13:13
--- NOTE | 2020-04-01 13:22 | NUR ---
Social Work This SW received a consult to assist with a home safety evaluation. This SW met with patient who remains alert/oriented. P.T at bedside who explains pending progress with pain management, possible need for SNF vs home care. Acute Rehab services explained to patient (along with qualifications for this level of care). Patient explains she prefers to discharge to home with home care, as able and plans to hire a caregiver. Patient lives alone in [place] in an apartment, no steps to get into the home from her garage. No history or substance abuse or mental health concerns present at this time. SW to follow further, as needed. Patient appears to have a plan to hire a caregiver, while agreeable to going to a rehab facility as needed.
--- NOTE | 2020-04-01 14:49 | NUR ---
CASE MANAGEMENT:INITIAL REVIEW 69 YR OLD FEMALE BIBA FROM HOME CC;PAIN SI;FTT. RLL SPRAIN. FALL. RENAL INSUFFICIENCY. 98.1 103 20 157/83 98% ON RA BUN 30 CR 1.4 UA+ PROTEIN, KETONES, BLOOD, LEUKOCYTE ESTERASE, SQUAMOUS EPITH CELLS, BACTERIA COVID RAPID ~ NEGATIVE URINE CX ~ NO GROWTH RT ANKLE XRAY ~ No acute fracture or dislocation. Significant generalized osteopenia. RT TIP/FIB XRAY ~ No radiographic evidence of acute fracture or dislocation. Severe generalized osteopenia. FOOT XRAY ~ No displaced fracture or dislocation identified. IS;TRAMADOL PO MOTRIN PO IVF NS ADMITTED TO MED SURG MED SURG STATUS DCP;FROM HOME CASE MANAGEMENT:REVIEW 04/01/20 SI;RENAL INSUFFICIENCY. RLE SPRAIN. 98.3 89 18 127/67 95% 2L NC BUN 28 BG 168 CA 8.4 IS;PERCOCET PO HEPARIN SUBQ Q12 IVF NS @ 60 ML/HR MED SURG STATUS DCP;FROM HOME PLAN; ABBY KIRK
--- NOTE | 2020-04-01 15:08 | NUR ---
[employer] (03/30-04/01) FAXED TO [facility] [phone] PH [phone]
[2020-04-01 16:00] VITALS: BP 114/70
--- NOTE | 2020-04-01 16:48 | Diagnostic Imaging Report ---
Indication: Cough Technique: One view of the chest Comparison: none Findings: The heart is enlarged. There is some atelectasis at the right lung base. Lungs and pleural spaces are otherwise clear. There are left axillary surgical clips. Impression: Cardiomegaly. No acute process
[2020-04-01] MEDS ORDERED: 1/2 NS 1000ml IV ONE (17:52)
--- NOTE | 2020-04-01 19:25 | NUR ---
NURSE HAND-OFF: Important Events on Shift: pt was able to walk around the room with physical therapy and the used of a FWW. Patient Status: stable/full code Diet: CCHO medium diet Pending Orders: [] Pending Results/Labs:am labs Pending MD notification:[] Latest Vital Signs: Temperature 98.3 , Pulse 78 , B/P 114 /70 , Respiratory Rate 18 , O2 SAT 96 , Nasal Cannula, O2 Flow Rate 2.0 . Vital Sign Comment: [] Latest Patel Fall Score: 95 Fall Risk: High Risk Safety Measures: Call light Within Reach, Bed Alarm Zone 1, Side Rails Side Rails x3, Bed position Low and Locked. Fall Precautions: yes, pt needs assistance to use the commode Yellow Socks Door Sign Patient Fall Education Report given to Mady CAREY, pt in stable condition. - During my shift pt was able to ambulate with physical therapy and the use of a FWW. - pt was able to void with no burning/pain.
--- NOTE | 2020-04-01 19:35 | NUR ---
NURSE NOTES: Received report from CHERRY Waldrop. AAO x 4, on room air. IV site intact and running IVF. Commode and walker at bedside. R lower leg swollen noted. Denies any pain. Encouraged I/S. Bed locked, lowest position, alarm on, side rails up, call light within reach. Will continue to monitor.
[2020-04-01 20:00] VITALS: BP 118/59
[2020-04-01] MEDS: Atorvastatin 20mg tab ORAL SCH (20:02)
[2020-04-01] MEDS: Levemir Flexpen SUBQ SCH (20:08)
[2020-04-02] VITALS: BP 121/63
--- NOTE | 2020-04-02 | Consultation ---
DATE OF CONSULTATION: 03/30/2020 ORTHOPEDIC CONSULTATION HISTORY OF PRESENT ILLNESS: The patient is a pleasant 69-year-old female who was in the bathroom where she kind of twisted and fell. She had difficulty ambulating. She had a previous fracture in tibia, and therefore presented to the ER. She has some pain and discomfort. Imaging studies were obtained. Orthopedic consultation was obtained for further care and recommendation. PAST MEDICAL HISTORY: Per intake chart. SURGICAL HISTORY: Per intake chart. MEDICATIONS: Per intake chart. PHYSICAL EXAMINATION: Right leg examination shows some the ankle. Dorsalis pedis +2. Neurovascular exam is normal. Posterior calf is soft. IMAGING STUDY: Three views of the right ankle were reviewed and showed no fracture, dislocation, or soft-tissue abnormalities. ASSESSMENT: Right ankle sprain. DISCUSSION: At this point, it looks like we can treat her conservatively. She is going to be admitted for discharge planning to make sure she can safely go home. We will start her on some physical therapy, weightbearing as tolerated. I recommend cryotherapy as well as elevation in the meantime to decrease the swelling and pain. Dalton Pollack M.D. DR: RADHA JOB#: [id number] CC:
[2020-04-02] MEDS: oxyCODONE HCL/Acetaminophen 5/325mg ORAL PRN ×3 (01:30→20:56)
[2020-04-02 04:00] VITALS: BP 127/61
[2020-04-02] MEDS: NovoLOG Insulin Flexpen SUBQ SCH ×4 (05:42→20:58)
--- NOTE | 2020-04-02 06:35 | NUR ---
NURSE HAND-OFF: Important Events on Shift:voided well, pain Patient Status: stable Diet: CCHO M Pending Orders: N Pending Results/Labs:AM labs Pending MD notification:N Latest Vital Signs: Temperature 98.1 , Pulse 84 , B/P 127 /61 , Respiratory Rate 20 , O2 SAT 92 , Room Air, O2 Flow Rate 2.0 . Vital Sign Comment: [] Latest Patel Fall Score: 95 Fall Risk: High Risk Safety Measures: Call light Within Reach, Bed Alarm Zone 1, Side Rails Side Rails x3, Bed position Low and Locked. Fall Precautions: Yellow Socks Door Sign Patient Fall Education Addendum: 04/02/20 at 0714 by TEMO WILL RN RN HAND-OFF: Report given to [place].
[2020-04-02 06:59] LABS: BASOPHILS % (AUTO) 0.7 % (0.0-2.0); EOSINOPHILS % (AUTO) 9.4 % (0.0-3.0); HEMATOCRIT 33.5 % (37.0-47.0); HEMOGLOBIN 10.3 G/DL (12.0-16.0); LYMPHOCYTES % (AUTO) 23.2 % (20.0-45.0); MEAN CORPUSCULAR VOLUME 90 FL (80-99); MONOCYTES % (AUTO) 9.4 % (1.0-10.0); NEUTROPHILS % (AUTO) 57.4 % (45.0-75.0); PLATELET COUNT 186 K/UL (150-450); RED BLOOD COUNT 3.72 M/UL (4.20-5.40); RED CELL DISTRIBUTION WIDTH 14.6 % (11.6-14.8); WHITE BLOOD COUNT 5.6 K/UL (4.8-10.8)
--- NOTE | 2020-04-02 07:20 | NUR ---
NURSE NOTES: Received report from Mady RN, pt sleeping, laying in bed with no signs of distress or other issues at this time. per cage shift manager, no over night events. IV on the right hand gauge #22 running IVF @60ml/hr. call light within reach, bed in lowest position. side rales up x2, I will f/u as needed.
[2020-04-02 07:43] LABS: CALCIUM 7.9 MG/DL (8.5-10.1); CREATININE 1.5 MG/DL (0.55-1.30); POTASSIUM 3.8 MMOL/L (3.5-5.1)
[2020-04-02 08:00] VITALS: BP 120/66
--- NOTE | 2020-04-02 09:03 | General Progress Note ---
Subjective Date patient seen: Apr 02, 2020 Time patient seen: 07:15 - am Allergies: Coded Allergies: HYDROCODONE (Verified Allergy, Unknown, 03/30/20) LORATADINE (Verified Allergy, Unknown, 03/30/20) pt states not feeling well and having rashes after taking this medication at a rehab facility Subjective HISTORY OF PRESENT ILLNESS: This is a 69-year-old female who is being seen on the Med/Surg floor of [facility]. Patient is in bed continues to c/o pain which has been severe with ambulation, orthopedic surgeon has recommended boot which patient is looking forward to. No new complaints at this time. REVIEW OF SYSTEMS: Denies rash, fever, chills, sweating, dizziness, drowsiness, blurred vision, sore throat, change in her weight. No shortness of breath or chest pain. No nausea, vomiting, diarrhea, or blood in the stool or urine. No dysuria. Objective Last 24 Hour Vital Signs Date Time Temp Pulse Resp B/P (MAP) Pulse Ox O2 Delivery O2 Flow Rate FiO2 04/02/20 08:00 98.0 79 20 120/66 (84) 94 04/02/20 04:00 98.1 84 20 127/61 (83) 92 04/02/20 00:00 97.8 87 20 121/63 (82) 93 04/01/20 21:00 Room Air 04/01/20 20:00 97.7 78 20 118/59 (78) 93 04/01/20 18:48 98.3 04/01/20 16:00 98.3 78 18 114/70 (85) 96 04/01/20 12:00 98.0 77 18 109/55 (73) 95 04/01/20 10:06 97.8 Intake and Output 04/01/20 04/02/20 19:00 07:00 Intake Total 560 ml 900 ml Output Total 1500 ml 320 ml Balance -940 ml 580 ml Intake Oral 500 ml 240 ml IV Total 60 ml 660 ml Output Urine Total 1500 ml 320 ml # Voids 4 Laboratory Tests 04/01/20 10:50: Sodium Level 137, Potassium Level 4.0, Chloride Level 103, Carbon Dioxide Level 27, Anion Gap 7, Blood Urea Nitrogen 28H, Creatinine 1.3, Estimat Glomerular Filtration Rate 40.6, Glucose Level 168H, Calcium Level 8.4L 04/01/20 11:50: POC Whole Blood Glucose 159H 04/01/20 17:30: POC Whole Blood Glucose [Pending] 04/01/20 20:04: POC Whole Blood Glucose [Pending] 04/02/20 04:50: White Blood Count 5.6, Red Blood Count 3.72L, Hemoglobin 10.3L, Hematocrit 33.5L , Mean Corpuscular Volume 90, Mean Corpuscular Hemoglobin 27.6, Mean Corpuscular Hemoglobin Concent 30.6L, Red Cell Distribution Width 14.6, Platelet Count 186, Mean Platelet Volume 6.8, Neutrophils (%) (Auto) 57.4, Lymphocytes (%) (Auto) 23.2, Monocytes (%) (Auto) 9.4, Eosinophils (%) (Auto) 9.4H, Basophils (%) ( Auto) 0.7, Sodium Level 133L, Potassium Level 3.8, Chloride Level 102, Carbon Dioxide Level 24, Anion Gap 7, Blood Urea Nitrogen 30H, Creatinine 1.5H, Estimat Glomerular Filtration Rate 34.4, Glucose Level 164H, Calcium Level 7.9L 04/02/20 05:35: POC Whole Blood Glucose [Pending] Height (Feet): 5 Height (Inches): 2.00 Weight (Pounds): 209 Objective PHYSICAL EXAMINATION: GENERAL: Alert, awake, and oriented. LUNGS: Decreased breath sounds bilaterally. HEART: S1S2 Regular. ABDOMEN: Obese EXTREMITIES: with tenderness to palpation of the right ankle decreased range of motion, slight swelling noted. NEURO: No changes Assessment/Plan Assessment/Plan: (1) Right ankle pain (2) Right ankle sprain s/p fall Patient to be continued on Percocet D/w Dr. Holt and he concurred. Bernard Elam Apr 02, 2020 09:03
[2020-04-02] MEDS: Analgesic Balm 15gm TOPIC SCH ×4 (09:04→20:56)
[2020-04-02] MEDS: Heparin 5000 units/ml inj SUBQ SCH ×2 (09:05→20:41)
[2020-04-02] MEDS: Vitamin D 1000 IU Tab ORAL SCH (09:07)
--- NOTE | 2020-04-02 10:09 | NUR ---
*-*DISCHARGE PLANNING*-* PATIENT HAS BEEN REFERRED TO: [facility] P: [phone] S/W DHRUV, WILL CALL BACK AFTER REVIEW.
--- NOTE | 2020-04-02 11:59 | Infectious Diseases Prog Note ---
Assessment/Plan Assessment/Plan: 69 yo female with PHMx of DM and Breast CA ( Status post resection) who presented to the ED after a fall. Pyuria UA Increased LE and Mod Vinny seen; ucx MIXED UROGENITAL CONTAMINANTS COLONY COUNT: >100,000 CFU/ML Asymptomatic sp Fall Low grade fever x 1 No Leukocytosis -04/01 CXR: Cardiomegaly. No acute process DM Breast CA ( Status post resection) Right Ankle Fx 2018 PLAN - Monitor off abx unless persistent febrile or high fever, leukocytosis and/or HD instability - f/u Cultures - Monitor CBC and Temps Thank you for this consult. [facility] will continue to follow Ms. Castaneda while she hiospitalized. Subjective Allergies: Coded Allergies: HYDROCODONE (Verified Allergy, Unknown, 03/30/20) LORATADINE (Verified Allergy, Unknown, 03/30/20) pt states not feeling well and having rashes after taking this medication at a rehab facility Tm 100.3; afebrile in ~24hrs no leukocytosis at 2l NC Cr improving Objective Last 24 Hour Vital Signs Date Time Temp Pulse Resp B/P (MAP) Pulse Ox O2 Delivery O2 Flow Rate FiO2 04/02/20 09:00 Room Air 04/02/20 08:00 98.0 79 20 120/66 (84) 94 04/02/20 04:00 98.1 84 20 127/61 (83) 92 04/02/20 00:00 97.8 87 20 121/63 (82) 93 04/01/20 21:00 Room Air 04/01/20 20:00 97.7 78 20 118/59 (78) 93 04/01/20 18:48 98.3 04/01/20 16:00 98.3 78 18 114/70 (85) 96 04/01/20 12:00 98.0 77 18 109/55 (73) 95 Height (Feet): 5 Height (Inches): 2.00 Weight (Pounds): 209 GEN: NAD HEENT: NCAT, MMM, EOMI, No Scleral icterus, Neck: No LAD, Supple LUNGS: CTAB, No W HEART: RRR, S1, S2. ABD: Soft, NT, Mild Distension Skin: No rash,, Normal in color Ext. Some pain with on ambulation right LE NEURO: A/O x 4, No focal deficits Microbiology Date/Time Source Procedure Growth Status 03/31/20 17:45 Nasopharynx SARS-CoV-2 RdRp Gene Assay - Final Complete Laboratory Tests Test 04/01/20 17:30 04/01/20 20:04 04/02/20 04:50 04/02/20 05:35 POC Whole Blood Glucose Pending Pending Pending White Blood Count 5.6 K/UL (4.8-10.8) Red Blood Count 3.72 M/UL (4.20-5.40) L Hemoglobin 10.3 G/DL (12.0-16.0) L Hematocrit 33.5 % (37.0-47.0) L Mean Corpuscular Volume 90 FL (80-99) Mean Corpuscular Hemoglobin 27.6 PG (27.0-31.0) Mean Corpuscular Hemoglobin Concent 30.6 G/DL (32.0-36.0) L Red Cell Distribution Width 14.6 % (11.6-14.8) Platelet Count 186 K/UL (150-450) Mean Platelet Volume 6.8 FL (6.5-10.1) Neutrophils (%) (Auto) 57.4 % (45.0-75.0) Lymphocytes (%) (Auto) 23.2 % (20.0-45.0) Monocytes (%) (Auto) 9.4 % (1.0-10.0) Eosinophils (%) (Auto) 9.4 % (0.0-3.0) H Basophils (%) (Auto) 0.7 % (0.0-2.0) Sodium Level 133 MMOL/L (136-145) L Potassium Level 3.8 MMOL/L (3.5-5.1) Chloride Level 102 MMOL/L (98-107) Carbon Dioxide Level 24 MMOL/L (21-32) Anion Gap 7 mmol/L (5-15) Blood Urea Nitrogen 30 mg/dL (7-18) H Creatinine 1.5 MG/DL (0.55-1.30) H Estimat Glomerular Filtration Rate 34.4 mL/min (>60) Glucose Level 164 MG/DL (74-106) H Calcium Level 7.9 MG/DL (8.5-10.1) L Current Medications Medications (Trade) Dose Ordered Sig/Dilip Route PRN Reason Start Time Stop Time Status Last Admin Dose Admin Acetaminophen (Tylenol) 650 mg Q6H PRN ORAL TEMP >100.4 03/31/20 17:45 04/30/20 17:44 Atorvastatin Calcium (Lipitor) 20 mg BEDTIME ORAL 03/30/20 21:00 06/28/20 20:59 04/01/20 20:02 Dextrose (Dextrose 50%) 25 ml Q30M PRN IV Hypoglycemia 03/30/20 11:45 06/28/20 11:44 Dextrose (Dextrose 50%) 50 ml Q30M PRN IV Hypoglycemia 03/30/20 11:45 06/28/20 11:44 Diphenhydramine HCl (Benadryl) 25 mg Q6H PRN ORAL Itching 04/01/20 18:30 05/01/20 18:29 04/02/20 09:06 Folic Acid (Folate) 1 mg DAILY ORAL 03/31/20 09:00 04/30/20 08:59 04/02/20 09:04 Heparin Sodium (Porcine) (Heparin 5000 units/ml) 5,000 units EVERY 12 HOURS SUBQ 03/30/20 21:00 05/14/20 20:59 04/02/20 09:05 Ibuprofen (Motrin) 600 mg Q8H PRN ORAL For Pain 03/30/20 17:45 04/29/20 17:44 04/01/20 21:12 Insulin Aspart (NovoLOG) BEFORE MEALS AND HS SUBQ 03/30/20 16:30 06/28/20 16:29 04/02/20 05:42 Insulin Detemir (Levemir) 38 units BEDTIME SUBQ 03/30/20 21:00 06/28/20 20:59 Lidocaine (Lidoderm 5% PATCH) 1 patch DAILY TDERMAL 03/31/20 09:00 06/29/20 08:59 04/02/20 09:04 Menthol/Methyl Salicylate (Bengay) 1 applic FOUR TIMES A DAY TOPIC 03/31/20 10:00 04/30/20 09:59 04/02/20 09:04 Ondansetron HCl (Zofran) 4 mg Q4H PRN IVP Nausea & Vomiting 03/30/20 23:00 04/29/20 22:59 04/02/20 07:04 Oxycodone/ Acetaminophen (Percocet 5-325) 1 tab Q6H PRN ORAL pain 03/30/20 23:00 04/06/20 22:59 04/02/20 01:30 Pioglitazone HCl (Actos) 45 mg DAILY ORAL 03/31/20 09:00 04/30/20 08:59 04/02/20 09:04 Vitamin D (Vitamin D) 1,000 intlu DAILY ORAL 03/31/20 09:00 04/30/20 08:59 04/02/20 09:07 Janet Cazares M.D. Apr 02, 2020 11:58
[2020-04-02 12:00] VITALS: BP 109/66
--- NOTE | 2020-04-02 12:30 | General Progress Note ---
Subjective Constitutional: Reports: weakness Allergies: Coded Allergies: HYDROCODONE (Verified Allergy, Unknown, 03/30/20) LORATADINE (Verified Allergy, Unknown, 03/30/20) pt states not feeling well and having rashes after taking this medication at a rehab facility All Systems: reviewed and negative except above Subjective sl general pain Objective Last 24 Hour Vital Signs Date Time Temp Pulse Resp B/P (MAP) Pulse Ox O2 Delivery O2 Flow Rate FiO2 04/02/20 09:00 Room Air 04/02/20 08:00 98.0 79 20 120/66 (84) 94 04/02/20 04:00 98.1 84 20 127/61 (83) 92 04/02/20 00:00 97.8 87 20 121/63 (82) 93 04/01/20 21:00 Room Air 04/01/20 20:00 97.7 78 20 118/59 (78) 93 04/01/20 18:48 98.3 04/01/20 16:00 98.3 78 18 114/70 (85) 96 Intake and Output 04/01/20 04/02/20 19:00 07:00 Intake Total 560 ml 900 ml Output Total 1500 ml 320 ml Balance -940 ml 580 ml Intake Oral 500 ml 240 ml IV Total 60 ml 660 ml Output Urine Total 1500 ml 320 ml # Voids 4 Laboratory Tests 04/01/20 17:30: POC Whole Blood Glucose [Pending] 04/01/20 20:04: POC Whole Blood Glucose [Pending] 04/02/20 04:50: White Blood Count 5.6, Red Blood Count 3.72L, Hemoglobin 10.3L, Hematocrit 33.5L , Mean Corpuscular Volume 90, Mean Corpuscular Hemoglobin 27.6, Mean Corpuscular Hemoglobin Concent 30.6L, Red Cell Distribution Width 14.6, Platelet Count 186, Mean Platelet Volume 6.8, Neutrophils (%) (Auto) 57.4, Lymphocytes (%) (Auto) 23.2, Monocytes (%) (Auto) 9.4, Eosinophils (%) (Auto) 9.4H, Basophils (%) (Auto) 0.7, Sodium Level 133L, Potassium Level 3.8, Chloride Level 102, Carbon Dioxide Level 24, Anion Gap 7, Blood Urea Nitrogen 30H, Creatinine 1.5H, Estimat Glomerular Filtration Rate 34.4, Glucose Level 164H, Calcium Level 7.9L 04/02/20 05:35: POC Whole Blood Glucose [Pending] 04/02/20 12:06: POC Whole Blood Glucose [Pending] Height (Feet): 5 Height (Inches): 2.00 Weight (Pounds): 209 General Appearance: lethargic EENT: normal ENT inspection Neck: normal alignment Cardiovascular: normal peripheral pulses, normal rate, regular rhythm Respiratory/Chest: chest wall non-tender, lungs clear, normal breath sounds Abdomen: normal bowel sounds, non tender, soft Extremities: normal inspection Edema: no edema noted Arm (L), no edema noted Arm (R), no edema noted Leg (L), no edema noted Leg (R), no edema noted Pedal (L), no edema noted Pedal (R), no edema noted Generalized Neurologic: responsive, motor weakness Skin: normal pigmentation, warm/dry Assessment/Plan Problem List: (1) Diabetes ICD Codes: E11.9 - Type 2 diabetes mellitus without complications SNOMED: 62608302, 664076722, [id number] Qualifiers: Qualified Codes: E11.9 - Type 2 diabetes mellitus without complications; Z79.4 - market maker (current) use of insulin (2) Renal insufficiency ICD Codes: N28.9 - Disorder of kidney and ureter, unspecified SNOMED: 329082944, 085130557 (3) Fall ICD Codes: W19.XXXA - Unspecified fall, initial encounter SNOMED: 1553959, 831173013, [id number] Qualifiers: Qualified Codes: W19.XXXA - Unspecified fall, initial encounter (4) Unable to ambulate ICD Codes: R26.2 - Difficulty in walking, not elsewhere classified SNOMED: 798032898, 184517660, [id number] (5) Sprain of right lower leg ICD Codes: S83.91XA - Sprain of unspecified site of right knee, initial encounter SNOMED: 136482287, 928034693, [id number] Qualifiers: Qualified Codes: S83.91XA - Sprain of unspecified site of right knee, initial encounter Status: unchanged Assessment/Plan: pt diet pain control abx cbc bmp am aru Garfield Mckay DO Apr 02, 2020 12:30
--- NOTE | 2020-04-02 13:02 | NUR ---
INSURANCE CLINICALS FAXED TO DERIK PIZARRO FX [phone] PH [phone] FX [phone] PH [phone]
--- NOTE | 2020-04-02 14:00 | NUR ---
NURSE NOTES: called Dr. Pollack to give up date of the patient. per MD to order MRI right foot. RN will input order and will carry on. - MD is aware that pt doesn't want to be placed in a SNF, patient stated that would like to go home and will hire a caregiver 21/12 until she feels strong to care for self. I will f/u as needed.
--- NOTE | 2020-04-02 14:07 | NUR ---
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 97.7 HR 82 RR 20 B/P 109/66 NA 133 CA 7.9 BUN 30 CR. 1.5 IS: ACTOS PO HEPARIN SUBC MED/SURG STATUS
[2020-04-02] MEDS ORDERED: Gadavist 7.5mMol/7.5ml vial IV PRN (14:30)
--- NOTE | 2020-04-02 14:45 | NUR ---
NURSE NOTES: patient off the unit for MRI right foot. pt left the floor with no signs of distress or other issues. I will f/u as needed.
--- NOTE | 2020-04-02 15:00 | NUR ---
NURSE NOTES: called Case management to inform that order was placed for DME:Ankle lace up. per Ada, the orthopedic company will assess the patient tomorrow morning. she is also aware that pt would like to go home instead of a SNF upon d/c. per PT patient will benefit from HH for RN/PT safety eval and tx, as well as from a BSC and FWW. will f/u as needed.
--- NOTE | 2020-04-02 15:30 | NUR ---
*-*DISCHARGE PLANNING*-* PATIENT HAS BEEN REFERRED TO: [facility] P: [phone] S/W CHRISTIAN, CANNOT ACCEPT PATIENT DUE TO INSURANCE, NO COVER WITH BLUE CROSS.
--- NOTE | 2020-04-02 15:30 | NUR ---
NURSE NOTES: pt back from MRI. pt in stable condition
[2020-04-02 16:00] VITALS: BP 145/73
--- NOTE | 2020-04-02 17:02 | NUR ---
*-*DISCHARGE PLANNING*-* S/W GLENN @ [facility] P: [phone] STATED SOMEONE WILL BE THER TO DROP OFF EQUIPMENT AROUND 4:15PM. PER NURSE DR. BELL KUMAR WANTS ANKLE LACE UP.
--- NOTE | 2020-04-02 19:16 | NUR ---
NURSE HAND-OFF: Important Events on Shift: pt able to walk around her room with PT and the use of a FWW Patient Status: stable/ full code Diet: CCHO medium diet Pending Orders: MRI thoracic spine Pending Results/Labs: MRI right foot (pending results) Pending MD notification: results for MRI, pls notify Dr. Pollack Latest Vital Signs: Temperature 97.7 , Pulse 94 , B/P 145 /73 , Respiratory Rate 20 , O2 SAT 96 , Room Air, O2 Flow Rate 2.0 . Vital Sign Comment: stable Latest Patel Fall Score: 95 Fall Risk: High Risk Safety Measures: Call light Within Reach, Bed Alarm Zone 1, Side Rails Side Rails x3, Bed position Low and Locked. Fall Precautions: Yellow Socks Door Sign Patient Fall Education Report given to Fabiola CAREY, pt in stable condition. with no signs of distress or other issues at this time. - Pending results of MRI right foot due to technical difficulties. - pending MRI thoracic spine ordered by Dr. Rubi however pt stated that doesn't want to have done the MRI. but will confirm in the morning, incoming nurse is aware.
--- NOTE | 2020-04-02 19:20 | NUR ---
NURSE NOTES: Received report & pt from CHERRY Waldrop. Pt in bed, a&ox4, in room air. No s/s of acute distress & c/o 11/07 pain. Will give pain med when due & pt verbalized understanding. IV site intact & S/L'd. Scheduled for MRI thoracic spine tomorrow AM however pt refuses it stating she didn't need it & she doesn't trust the doctor who just came by. Pt also states she would rather go to her doctor in [place] for the MRI to be done if recommended by her MD & not here. Will endorse to AM shift & f/u with radiology in the AM. Plan of care discussed.
[2020-04-02 20:00] VITALS: BP 137/63
--- NOTE | 2020-04-02 20:10 | Diagnostic Imaging Report ---
Exam: MR RIGHT FOOT Without Contrast CLINICAL HISTORY: 69 Y/O FEMALE IP pt WITH RIGHT FOOT PAIN AND SWELLING PRIOR X-RAY OF RIGHT FOOT DONE 03/30 TECHNIQUE: Multiplanar magnetic resonance images of the right midfoot and forefoot without intravenous contrast. Skin marker is placed in dorsal aspect of middle cuneiform. COMPARISON: September foot radiographs from 03/30/20 FINDINGS: Tendons and ligaments: Intact Fluid: Unremarkable. No joint effusion. Bones/joints: Mild to moderate osteoarthritic changes. Bone marrow has normal signal. Soft tissues: Mild subcutaneous soft tissue edema predominantly in the dorsum of mid foot and forefoot without fluid collection. IMPRESSION: No fracture or osteomyelitis. Mild subcutaneous soft tissue edema predominantly in the dorsum of mid foot and forefoot without fluid collection.
[2020-04-02] MEDS: Levemir Flexpen SUBQ SCH (20:52)
[2020-04-02] MEDS: Atorvastatin 20mg tab ORAL SCH (20:56)
[2020-04-03] VITALS: BP 128/65
[2020-04-03 04:01] VITALS: BP 125/69
--- NOTE | 2020-04-03 04:06 | Cardiology Report ---
APPROVED REPORT EKG Measurement Heart [id number] ND 180P52 [id number] <Conclusion> Normal sinus rhythm Incomplete right bundle branch block Left anterior fascicular block Voltage criteria for left ventricular hypertrophy Abnormal ECG
--- NOTE | 2020-04-03 05:41 | NUR ---
NURSE NOTES: Per pt, hasn't had BM since 03/29 but is passing gas. Will inform Dr. Doran.
[2020-04-03] MEDS ORDERED: Fleet's Enema 133ml RECTAL PRN ×2 (05:45→10:15)
[2020-04-03 05:59] LABS: BASOPHILS % (AUTO) 1.1 % (0.0-2.0); EOSINOPHILS % (AUTO) 10.5 % (0.0-3.0); HEMATOCRIT 34.6 % (37.0-47.0); HEMOGLOBIN 10.6 G/DL (12.0-16.0); MEAN CORPUSCULAR VOLUME 90 FL (80-99); MONOCYTES % (AUTO) 8.1 % (1.0-10.0); NEUTROPHILS % (AUTO) 51.2 % (45.0-75.0); PLATELET COUNT 207 K/UL (150-450); RED BLOOD COUNT 3.85 M/UL (4.20-5.40); RED CELL DISTRIBUTION WIDTH 14.4 % (11.6-14.8)
[2020-04-03] MEDS: NovoLOG Insulin Flexpen SUBQ SCH ×3 (06:06→17:21)
--- NOTE | 2020-04-03 06:17 | NUR ---
NURSE NOTES: Pt made aware that she's started on stool softeners today. Per pt, she'll try & pass BM maybe after breakfast or so since she's tired & will ask for suppository if needed.
[2020-04-03 06:30] LABS: CALCIUM 8.7 MG/DL (8.5-10.1); CREATININE 1.6 MG/DL (0.55-1.30); POTASSIUM 4.3 MMOL/L (3.5-5.1)
--- NOTE | 2020-04-03 06:30 | NUR ---
NURSE HAND-OFF: Important Events on Shift:pain management, refused scheduled MRI thoracic spine since last night, new orders for stool softeners Patient Status: stable Diet: ccho (m) Pending Orders: MRI thoracic spine 04/03/20 Pending Results/Labs:none Pending MD notification:none Latest Vital Signs: Temperature 98.0 , Pulse 81 , B/P 125 /69 , Respiratory Rate 16 , O2 SAT 96 , Room Air, O2 Flow Rate 2.0 . Vital Sign Comment: none Latest Patel Fall Score: 95 Fall Risk: High Risk Safety Measures: Call light Within Reach, Bed Alarm Zone 1, Side Rails Side Rails x3, Bed position Low and Locked. Fall Precautions: Yellow Socks Door Sign Patient Fall Education Report given to . Addendum: 04/03/20 at 0731 by Fabiola Pearson RN Report given to CHERRY Camejo.
--- NOTE | 2020-04-03 06:44 | NUR ---
NURSE NOTES: Right foot MRI result is out. Notified Dr. Pollack of result.
--- NOTE | 2020-04-03 07:29 | NUR ---
NURSE NOTES: Received report from CHERRY Hicks. Rounding was done with shift foreman nurse. Patient a/o x 4, in bed, having breakfast. No SOB noted. Pt c/o right leg pain as 12/07. Motrin was given by shift foreman nurse. Bed in lowest position, call light within reach. Will continue to monitor.
[2020-04-03 08:00] VITALS: BP 132/68
--- NOTE | 2020-04-03 08:30 | Consultation ---
DATE OF CONSULTATION: 04/02/2020 NEUROLOGICAL CONSULTATION CONSULTING PHYSICIAN: Rocael Bains MD CHIEF COMPLAINT: This is the first [facility] admission for this 69-year-old right-handed white woman with diabetes mellitus type 2 for last 18 years, hypertension, hyperlipidemia, and previous right tibial-fibular fracture. She was admitted with a fall. I was asked to see the patient because of right leg weakness, which she initially denied. HISTORY OF PRESENT INJURY: Around 3 a.m. she got up to go to the bathroom, she sat down on the toilet and urinated on herself and onto the floor on the left side. The patient tried to stand up, slipped and fell onto her buttocks. She did not hit her head and there was no loss of consciousness. She telephoned the tumbler dyeing machine operator and the paramedics brought her to the hospital. The chemistries revealed a low sodium of 133 and low calcium of 7.9, elevated BUN around 30, and creatinine of 1.5. Glucose was 144. Her CBC was initially normal with some elevated neutrophil count, but normal white cell count. Platelets were normal. However, hemoglobin did fall from 11 down to 10.3. The patient's PT and PTT were normal. Urinalysis revealed moderate bacteria, but only 2 to 4 white blood cells, she had +3 protein in urine, +1 ketones, and +1 blood. Additional studies on 03/30/2020, x-rays of the right ankle revealed osteopenia and no acute fracture. The tibiofibular x-ray on 03/30/2020 revealed generalized osteopenia, which was severe. There is no definite radiographic evidence of acute fracture or dislocation. There is no mention of chronic fracture. Chest x-ray reveals no acute disease. her UTI and he would follow up on her cultures. On 03/31/2020, Culture of urine revealed mixed urogenital contaminants with a colonic count greater than 100,000. The patient denies any migraine headaches, memory loss, seizures, blackouts, loss of smell or taste, diplopia, blurred vision, hearing loss, tinnitus, or vertigo. She denies any tremors or shakes. Before the accident, she was walking. There is no history of incontinence or muscle weakness or ataxia. On 12/16/2018, she fell in the lobby of her apartment. She is unsure why she fell, she was fatigued at that time. She went to [facility], had a right tibia fracture and was treated. The patient complains of pain in her right leg, especially when she moves up. There is no family history of neurologic disease. PAST MEDICAL HISTORY/PAST MEDICAL ILLNESSES: 1. AODM type 2, see above. She denies retinopathy but has probably some renal insufficiency. 2. Left breast cancer in 2000 with lumpectomy, chemotherapy, and radiation. 3. Hyperlipidemia. 4. Right ankle fracture, see above. 5. Fibroid tumors in the uterus, hysterectomy, and oophorectomy. ALLERGIES: She is allergic to Katy and loratadine. MEDICATIONS: She is on Crestor, Actos, and folic acid. She is also on vitamin D as well. SURGERIES: See above. She had a hysterectomy in 1996. She had a natural . SOCIAL HISTORY: She has been twice. 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 She does not know the health of her child. REVIEW OF SYSTEMS: Her appetite is good. Her weight is 210 pounds, 5 feet 2 inches tall. PHYSICAL EXAMINATION: GENERAL: She is a well-developed obese woman, in no acute distress. VITAL SIGNS: Blood pressure is 145/73, pulse is 94 and regular, respirations rate is 18, temperature is 97.7 degrees. HEENT: Examination of head reveals poor dentition. NECK: There is no posterior cervical tenderness or muscle spasm. No limitation of motion. Carotids are +2 without any bruits. LUNGS: Clear to auscultation. CARDIOVASCULAR SYSTEM: PMI was not felt. JVP appeared to be normal. There is normal S1, S2 physiologically split. There is no S3, S4, murmurs, or rubs. ABDOMEN: The abdomen is very obese. Bowel sounds are intact. Organomegaly or masses could not be appreciated. EXTREMITIES: She has some slight tenderness from the right knee. When she moves her legs, she has pain in the right leg, but cannot tell me exactly where it is. NEUROLOGIC EXAMINATION: MENTAL STATUS: Her judgment was basically intact. She would go to the exit if she smells smoke in the theater. Affect, the affect is appropriate. Memory, birthday is 1950. Immediate recall is 3/3 objects. Recent recall is 3/3 objects in 5 minutes. Intellect, similarities were abstract. Train and bicycle are "vehicles for transportation." Orientation - time, she new it is March 2020, did not know the exact day, she knew it is Wednesday. Place, she knew she was at [facility] on the third floor. She was oriented to person. CRANIAL NERVE EXAMINATION: CRANIAL II: Visual holloway are intact to confrontation. CRANIAL NERVES III, IV, AND : Extraocular motility was full. Pupils were equal, round, reactive to light at 4.5 mm. CRANIAL NERVE V: Facial and corneal sensations were intact to fine touch. Pterygoid strength is 5/5. CRANIAL NERVES VII: Facial strength is 5/5 bilaterally. CRANIAL NERVES VIII: Auditory acuity is probably normal, right ear, to loud whisper. CRANIAL NERVES IX AND X: Not examined because of the pandemic. CRANIAL NERVE XI: Sternocleidomastoid strength is 5/5. CRANIAL NERVE XII: Tongue protrudes in the midline without fasciculations or atrophy. MUSCLE EXAMINATION: Muscle bulk is difficult to evaluate. Tone is normal. Strength is 5/5 in the upper extremities without pronator drift. It is also 5/5 in the left lower extremity. Right lower extremity, iliopsoas is 2/5 to 3/5. The hamstring is 4/5. Extensor on the right leg is 3/5 to 4/5. Distal muscle strength is 5/5. Abductors and adductors are about 3+ to 4/5. Reflexes are +2 in the upper extremities, +2 at the knees with crossed adductor on the right side, +1 to 2 at the ankles with either withdrawal or upgoing toes bilaterally, especially on the left on testing for Babinski response. COORDINATION: Oyawtv-rr-ukto and rapid alternating movements were intact. Kcyv-iz-yvva using the left leg and right knee was intact. She could not do it using the right leg and the left knee. GAIT AND STATION: Not tested. SENSORY EXAMINATION: Pinprick and fine touch were normal. Proprioception is intact. IMPRESSION: It is hard to tell whether or not the weakness in the right leg is due to pain or actual muscle weakness. Distally, her strength is strong 5/5. There is also a question of bilateral Babinski signs and reflexes slightly increased. Therefore, although it is hard to localize this patient's lesion in the territory of the left anterior cerebral artery and medial part of her left frontal lobe. She really has bilateral Babinski signs. She had cervical spine and thoracic spine problem. Today she had an MRI scan of her right leg. The results are not available. She has a lot of osteopenia and there is no back pain, which would make me think that there is no cord compression from a thoracic or cervical spine fracture, and it is conceivable we may not find much in the MRIs. MRI of the lumbar spine should also probably be done,doubt right upper lumbar plexus. PLAN: 1. MRI of the cervical and thoracic spine. 2. Speaking about this case. 3. Treat her pain. 4. Try to get records from [facility]. . Rocael Bains MD DR: Dru JOB#: [id number] CC: YAHIR
--- NOTE | 2020-04-03 08:36 | General Progress Note ---
Subjective Date patient seen: Apr 03, 2020 Time patient seen: 07:00 - am Allergies: Coded Allergies: HYDROCODONE (Verified Allergy, Unknown, 03/30/20) LORATADINE (Verified Allergy, Unknown, 03/30/20) pt states not feeling well and having rashes after taking this medication at a rehab facility Subjective HISTORY OF PRESENT ILLNESS: This is a 69-year-old female who is being seen on the Med/Surg floor of [facility]. Patient is in bed and continues to c/o pain which has been tolerated on the Percocet. MRI of foot was performed not ankle. D/w nurse. REVIEW OF SYSTEMS: Denies rash, fever, chills, sweating, dizziness, drowsiness, blurred vision, sore throat, change in her weight. No shortness of breath or chest pain. No nausea, vomiting, diarrhea, or blood in the stool or urine. No dysuria. Objective Last 24 Hour Vital Signs Date Time Temp Pulse Resp B/P (MAP) Pulse Ox O2 Delivery O2 Flow Rate FiO2 04/03/20 08:15 95 Nasal Cannula 2.0 28 04/03/20 07:27 98.0 04/03/20 04:01 98.0 81 16 125/69 (87) 96 04/03/20 00:00 97.7 82 16 128/65 (86) 97 04/02/20 21:00 Room Air 04/02/20 20:00 97.9 88 18 137/63 (87) 97 04/02/20 16:55 97.7 04/02/20 16:00 98.4 94 20 145/73 (97) 96 04/02/20 13:53 97.7 04/02/20 12:00 97.7 82 20 109/66 (80) 94 04/02/20 09:00 Room Air Intake and Output 04/02/20 04/03/20 19:00 07:00 Intake Total 550 ml 360 ml Output Total 600 ml 700 ml Balance -50 ml -340 ml Intake Oral 550 ml 360 ml Output Urine Total 600 ml 700 ml # Voids 3 Laboratory Tests 04/02/20 12:06: POC Whole Blood Glucose [Pending] 04/02/20 16:23: POC Whole Blood Glucose [Pending] 04/02/20 20:49: POC Whole Blood Glucose 182H 04/03/20 05:11: White Blood Count 5.0, Red Blood Count 3.85L, Hemoglobin 10.6L, Hematocrit 34.6L , Mean Corpuscular Volume 90, Mean Corpuscular Hemoglobin 27.4, Mean Corpuscular Hemoglobin Concent 30.5L, Red Cell Distribution Width 14.4, Platelet Count 207, Mean Platelet Volume 6.4L, Neutrophils (%) (Auto) 51.2, Lymphocytes (%) (Auto) 29.0, Monocytes (%) (Auto) 8.1, Eosinophils (%) (Auto) 10.5H, Basophils (%) (Auto) 1.1, Sodium Level 138, Potassium Level 4.3, Chloride Level 106, Carbon Dioxide Level 26, Anion Gap 7, Blood Urea Nitrogen 35H, Creatinine 1.6H, Estimat Glomerular Filtration Rate 32.0, Glucose Level 148H, Calcium Level 8.7 04/03/20 05:16: POC Whole Blood Glucose 174H Height (Feet): 5 Height (Inches): 2.00 Weight (Pounds): 209 Objective PHYSICAL EXAMINATION: GENERAL: Alert, awake, and oriented. LUNGS: Decreased breath sounds bilaterally. HEART: S1S2 Regular. ABDOMEN: Obese EXTREMITIES: with tenderness to palpation of the right ankle decreased range of motion, slight swelling noted. NEURO: No changes Assessment/Plan Assessment/Plan: (1) Right ankle pain (2) Right ankle sprain s/p fall Patient to be continued on Percocet D/w Dr. Holt and he concurred. Bernard Elam Apr 03, 2020 08:36
[2020-04-03] MEDS: Docusate 100mg cap ORAL SCH ×2 (08:54→17:20)
[2020-04-03] MEDS: Vitamin D 1000 IU Tab ORAL SCH (08:55)
[2020-04-03] MEDS: Analgesic Balm 15gm TOPIC SCH ×3 (08:59→17:20)
[2020-04-03] MEDS: Heparin 5000 units/ml inj SUBQ SCH (09:00)
--- NOTE | 2020-04-03 09:25 | General Progress Note ---
Subjective Constitutional: Reports: weakness Allergies: Coded Allergies: HYDROCODONE (Verified Allergy, Unknown, 03/30/20) LORATADINE (Verified Allergy, Unknown, 03/30/20) pt states not feeling well and having rashes after taking this medication at a rehab facility All Systems: reviewed and negative except above Subjective sl general pain Objective Last 24 Hour Vital Signs Date Time Temp Pulse Resp B/P (MAP) Pulse Ox O2 Delivery O2 Flow Rate FiO2 04/03/20 08:15 95 Nasal Cannula 2.0 28 04/03/20 07:27 98.0 04/03/20 04:01 98.0 81 16 125/69 (87) 96 04/03/20 00:00 97.7 82 16 128/65 (86) 97 04/02/20 21:00 Room Air 04/02/20 20:00 97.9 88 18 137/63 (87) 97 04/02/20 16:55 97.7 04/02/20 16:00 98.4 94 20 145/73 (97) 96 04/02/20 13:53 97.7 04/02/20 12:00 97.7 82 20 109/66 (80) 94 Intake and Output 04/02/20 04/03/20 19:00 07:00 Intake Total 550 ml 360 ml Output Total 600 ml 700 ml Balance -50 ml -340 ml Intake Oral 550 ml 360 ml Output Urine Total 600 ml 700 ml # Voids 3 Laboratory Tests 04/02/20 12:06: POC Whole Blood Glucose [Pending] 04/02/20 16:23: POC Whole Blood Glucose [Pending] 04/02/20 20:49: POC Whole Blood Glucose 182H 04/03/20 05:11: White Blood Count 5.0, Red Blood Count 3.85L, Hemoglobin 10.6L, Hematocrit 34.6L , Mean Corpuscular Volume 90, Mean Corpuscular Hemoglobin 27.4, Mean Corpuscular Hemoglobin Concent 30.5L, Red Cell Distribution Width 14.4, Platelet Count 207, Mean Platelet Volume 6.4L, Neutrophils (%) (Auto) 51.2, Lymphocytes (%) (Auto) 29.0, Monocytes (%) (Auto) 8.1, Eosinophils (%) (Auto) 10.5H, Basophils (%) (Auto) 1.1, Sodium Level 138, Potassium Level 4.3, Chloride Level 106, Carbon Dioxide Level 26, Anion Gap 7, Blood Urea Nitrogen 35H, Creatinine 1.6H, Estimat Glomerular Filtration Rate 32.0, Glucose Level 148H, Calcium Level 8.7 04/03/20 05:16: POC Whole Blood Glucose 174H Height (Feet): 5 Height (Inches): 2.00 Weight (Pounds): 209 General Appearance: alert EENT: normal ENT inspection Neck: normal alignment Cardiovascular: normal peripheral pulses, normal rate, regular rhythm Respiratory/Chest: chest wall non-tender, lungs clear, normal breath sounds Abdomen: normal bowel sounds, non tender, soft Extremities: normal inspection Edema: no edema noted Arm (L), no edema noted Arm (R), no edema noted Leg (L), no edema noted Leg (R), no edema noted Pedal (L), no edema noted Pedal (R), no edema noted Generalized Neurologic: motor weakness Skin: normal pigmentation, warm/dry Assessment/Plan Problem List: (1) Diabetes ICD Codes: E11.9 - Type 2 diabetes mellitus without complications SNOMED: 94182748, 033662794, [id number] Qualifiers: Qualified Codes: E11.9 - Type 2 diabetes mellitus without complications; Z79.4 - group home (current) use of insulin (2) Renal insufficiency ICD Codes: N28.9 - Disorder of kidney and ureter, unspecified SNOMED: 508823330, 719090777 (3) Fall ICD Codes: W19.XXXA - Unspecified fall, initial encounter SNOMED: 4401901, 138593093, [id number] Qualifiers: Qualified Codes: W19.XXXA - Unspecified fall, initial encounter (4) Unable to ambulate ICD Codes: R26.2 - Difficulty in walking, not elsewhere classified SNOMED: 828225467, 438596271, 86183484621897879 (5) Sprain of right lower leg ICD Codes: S83.91XA - Sprain of unspecified site of right knee, initial encounter SNOMED: 771222329, 260200774, [id number] Qualifiers: Qualified Codes: S83.91XA - Sprain of unspecified site of right knee, initial encounter Status: unchanged Assessment/Plan: pt diet pain control abx cbc bmp am aru eval Doran,Garfield Chi-Dede DO Apr 03, 2020 09:25
[2020-04-03] MEDS ORDERED: Milk of Magnesia 30ml Ud ORAL PRN (10:00)
--- NOTE | 2020-04-03 10:01 | NUR ---
NURSE NOTES: Pt didn't have BM for [address] Doran was notified. ordered MOM 30ml PO tid prn.
--- NOTE | 2020-04-03 10:40 | NUR ---
NURSE NOTES: Patient refused thoracic spine MRI. Informed to Dr. Doran.
--- NOTE | 2020-04-03 11:31 | Infectious Diseases Prog Note ---
Assessment/Plan Assessment/Plan: 69 yo female with PHMx of DM and Breast CA ( Status post resection) who presented to the ED after a fall. Pyuria UA Increased LE and Mod Vinny seen; ucx MIXED UROGENITAL CONTAMINANTS COLONY COUNT: >100,000 CFU/ML Asymptomatic sp Fall R foot pain -MRI R foot: No fracture or osteomyelitis. Mild subcutaneous soft tissue edema predominantly in the dorsum of mid foot and forefoot without fluid collection. Low grade fever x 1 No Leukocytosis -04/01 CXR: Cardiomegaly. No acute process DM Breast CA ( Status post resection) Right Ankle Fx 2019 PLAN - Monitor off abx unless persistent febrile or high fever, leukocytosis and/or HD instability - f/u Cultures - Monitor CBC and Temps -ok to dc off antibiotics Thank you for this consult. [facility] will continue to follow Ms. Castaneda while she hiospitalized. Subjective Allergies: Coded Allergies: HYDROCODONE (Verified Allergy, Unknown, 03/30/20) LORATADINE (Verified Allergy, Unknown, 03/30/20) pt states not feeling well and having rashes after taking this medication at a rehab facility Tm 100.3; afebrile in ~24hrs no leukocytosis at 2l NC Cr improving Objective Last 24 Hour Vital Signs Date Time Temp Pulse Resp B/P (MAP) Pulse Ox O2 Delivery O2 Flow Rate FiO2 04/03/20 09:00 Room Air 04/03/20 08:15 95 Nasal Cannula 2.0 28 04/03/20 08:00 98.0 76 16 132/68 (89) 98 04/03/20 07:27 98.0 04/03/20 04:01 98.0 81 16 125/69 (87) 96 04/03/20 00:00 97.7 82 16 128/65 (86) 97 04/02/20 21:00 Room Air 04/02/20 20:00 97.9 88 18 137/63 (87) 97 04/02/20 16:55 97.7 04/02/20 16:00 98.4 94 20 145/73 (97) 96 04/02/20 13:53 97.7 04/02/20 12:00 97.7 82 20 109/66 (80) 94 Height (Feet): 5 Height (Inches): 2.00 Weight (Pounds): 209 GEN: NAD HEENT: NCAT, MMM, EOMI, No Scleral icterus, Neck: No LAD, Supple LUNGS: CTAB, No W HEART: RRR, S1, S2. ABD: Soft, NT, Mild Distension Skin: No rash,, Normal in color Ext. Some pain with on ambulation right LE NEURO: A/O x 4, No focal deficits Microbiology Date/Time Source Procedure Growth Status 03/31/20 17:45 Nasopharynx SARS-CoV-2 RdRp Gene Assay - Final Complete Laboratory Tests Test 04/02/20 12:06 04/02/20 16:23 04/02/20 20:49 04/03/20 05:11 POC Whole Blood Glucose Pending Pending 182 MG/DL (74-106) H White Blood Count 5.0 K/UL (4.8-10.8) Red Blood Count 3.85 M/UL (4.20-5.40) L Hemoglobin 10.6 G/DL (12.0-16.0) L Hematocrit 34.6 % (37.0-47.0) L Mean Corpuscular Volume 90 FL (80-99) Mean Corpuscular Hemoglobin 27.4 PG (27.0-31.0) Mean Corpuscular Hemoglobin Concent 30.5 G/DL (32.0-36.0) L Red Cell Distribution Width 14.4 % (11.6-14.8) Platelet Count 207 K/UL (150-450) Mean Platelet Volume 6.4 FL (6.5-10.1) L Neutrophils (%) (Auto) 51.2 % (45.0-75.0) Lymphocytes (%) (Auto) 29.0 % (20.0-45.0) Monocytes (%) (Auto) 8.1 % (1.0-10.0) Eosinophils (%) (Auto) 10.5 % (0.0-3.0) H Basophils (%) (Auto) 1.1 % (0.0-2.0) Sodium Level 138 MMOL/L (136-145) Potassium Level 4.3 MMOL/L (3.5-5.1) Chloride Level 106 MMOL/L (98-107) Carbon Dioxide Level 26 MMOL/L (21-32) Anion Gap 7 mmol/L (5-15) Blood Urea Nitrogen 35 mg/dL (7-18) H Creatinine 1.6 MG/DL (0.55-1.30) H Estimat Glomerular Filtration Rate 32.0 mL/min (>60) Glucose Level 148 MG/DL (74-106) H Calcium Level 8.7 MG/DL (8.5-10.1) Test 04/03/20 05:16 POC Whole Blood Glucose 174 MG/DL (74-106) H Current Medications Medications (Trade) Dose Ordered Sig/Dilip Route PRN Reason Start Time Stop Time Status Last Admin Dose Admin Acetaminophen (Tylenol) 650 mg Q6H PRN ORAL TEMP >100.4 03/31/20 17:45 04/30/20 17:44 Atorvastatin Calcium (Lipitor) 20 mg BEDTIME ORAL 03/30/20 21:00 06/28/20 20:59 04/02/20 20:56 Bisacodyl (Dulcolax) 10 mg BIDPRN PRN RECTAL Constipation 04/03/20 10:15 07/02/20 05:44 Dextrose (Dextrose 50%) 25 ml Q30M PRN IV Hypoglycemia 03/30/20 11:45 06/28/20 11:44 Dextrose (Dextrose 50%) 50 ml Q30M PRN IV Hypoglycemia 03/30/20 11:45 06/28/20 11:44 Diphenhydramine HCl (Benadryl) 25 mg Q6H PRN ORAL Itching 04/01/20 18:30 05/01/20 18:29 04/03/20 05:01 Docusate Sodium (Colace) 100 mg TWICE A DAY ORAL 04/03/20 09:00 05/03/20 08:59 04/03/20 08:54 Folic Acid (Folate) 1 mg DAILY ORAL 03/31/20 09:00 04/30/20 08:59 04/03/20 08:55 Gadobutrol (Gadavist) 7.5 mmol NOW PRN IV Radiology Procedure 04/02/20 14:30 04/06/20 14:29 Heparin Sodium (Porcine) (Heparin 5000 units/ml) 5,000 units EVERY 12 HOURS SUBQ 03/30/20 21:00 05/14/20 20:59 04/03/20 09:00 Ibuprofen (Motrin) 600 mg Q8H PRN ORAL For Pain 03/30/20 17:45 04/29/20 17:44 04/03/20 06:57 Insulin Aspart (NovoLOG) BEFORE MEALS AND HS SUBQ 03/30/20 16:30 06/28/20 16:29 04/03/20 06:06 Insulin Detemir (Levemir) 38 units BEDTIME SUBQ 03/30/20 21:00 06/28/20 20:59 Lidocaine (Lidoderm 5% PATCH) 1 patch DAILY TDERMAL 03/31/20 09:00 06/29/20 08:59 04/03/20 08:59 Magnesium Hydroxide (Mom) 30 ml TIDPRN PRN ORAL Constipation 04/03/20 10:00 05/03/20 09:59 04/03/20 10:22 Menthol/Methyl Salicylate (Bengay) 1 applic FOUR TIMES A DAY TOPIC 03/31/20 10:00 04/30/20 09:59 04/03/20 08:59 Ondansetron HCl (Zofran) 4 mg Q4H PRN IVP Nausea & Vomiting 03/30/20 23:00 04/29/20 22:59 04/02/20 07:04 Oxycodone/ Acetaminophen (Percocet 5-325) 1 tab Q6H PRN ORAL pain 03/30/20 23:00 04/06/20 22:59 04/02/20 20:56 Pioglitazone HCl (Actos) 45 mg DAILY ORAL 03/31/20 09:00 04/30/20 08:59 04/03/20 08:55 Sodium Phosphate (Fleet's Sodium Phosl Enema) 133 ml BIDPRN PRN RECTAL Constipation 04/03/20 10:15 05/03/20 05:44 Vitamin D (Vitamin D) 1,000 intlu DAILY ORAL 03/31/20 09:00 04/30/20 08:59 04/03/20 08:55 Janet Cazares M.D. Apr 03, 2020 11:31
[2020-04-03 12:00] VITALS: BP 129/66
--- NOTE | 2020-04-03 12:08 | NUR ---
TEACHER AIDE NOTE S/W PATIENT AT BEDSIDE IN RE TO RECOMMENDATION FOR ARU. PATIENT STATED "ABSOLUTELY NOT". PER PATIENT, SHE WANTS TO RETURN HOME. STATED SHE WILL HAVE PERSONAL FINANCIAL REPRESENTATIVE CAREGIVER THROUGH HER CAREGIVING AGENCY. A CAREGIVER WILL COME PICK HER UP FROM [facility] [place]ON [place].
--- NOTE | 2020-04-03 12:15 | Consultation ---
History of Present Illness General Chief Complaint: Pain Referring physician: Reason for Consultation: Present Illness Allergies: Coded Allergies: HYDROCODONE (Verified Allergy, Unknown, 03/30/20) LORATADINE (Verified Allergy, Unknown, 03/30/20) pt states not feeling well and having rashes after taking this medication at a rehab facility Medication History Scheduled Cholecalciferol (Vitamin D3) (Vitamin D3*), Unknown Dose PO DAILY, (Reported) Folic Acid* (Folic Acid*), 1 MG ORAL DAILY, (Reported) Insulin Glargine (Lantus), 38 SUBQ BEDTIME, (Reported) Pioglitazone Hcl* (Actos*), 45 MG ORAL DAILY, (Reported) Rosuvastatin Calcium* (Crestor*), 10 MG ORAL DAILY, (Reported) Miscellaneous Medications [ozempic], Unknown Dose, (Reported) Discontinued Medications Semaglutide (Rybelsus), 0.25 MG PO ONCE A WEEK, (Reported) Discontinued Reason: Pt stopped taking med Patient History Healthcare decision maker Resuscitation status Advanced Directive on File Physical Exam Last 24 Hour Vital Signs Date Time Temp Pulse Resp B/P (MAP) Pulse Ox O2 Delivery O2 Flow Rate FiO2 04/03/20 09:00 Room Air 04/03/20 08:15 95 Nasal Cannula 2.0 28 04/03/20 08:00 98.0 76 16 132/68 (89) 98 04/03/20 07:27 98.0 04/03/20 04:01 98.0 81 16 125/69 (87) 96 04/03/20 00:00 97.7 82 16 128/65 (86) 97 04/02/20 21:00 Room Air 04/02/20 20:00 97.9 88 18 137/63 (87) 97 04/02/20 16:55 97.7 04/02/20 16:00 98.4 94 20 145/73 (97) 96 04/02/20 13:53 97.7 Intake and Output 04/02/20 04/03/20 19:00 07:00 Intake Total 550 ml 360 ml Output Total 600 ml 700 ml Balance -50 ml -340 ml Intake Oral 550 ml 360 ml Output Urine Total 600 ml 700 ml # Voids 3 Laboratory Tests Test 04/02/20 16:23 04/02/20 20:49 11/4/20 05:11 04/03/20 05:16 POC Whole Blood Glucose Pending 182 MG/DL (74-106) H 174 MG/DL (74-106) H White Blood Count 5.0 K/UL (4.8-10.8) Red Blood Count 3.85 M/UL (4.20-5.40) L Hemoglobin 10.6 G/DL (12.0-16.0) L Hematocrit 34.6 % (37.0-47.0) L Mean Corpuscular Volume 90 FL (80-99) Mean Corpuscular Hemoglobin 27.4 PG (27.0-31.0) Mean Corpuscular Hemoglobin Concent 30.5 G/DL (32.0-36.0) L Red Cell Distribution Width 14.4 % (11.6-14.8) Platelet Count 207 K/UL (150-450) Mean Platelet Volume 6.4 FL (6.5-10.1) L Neutrophils (%) (Auto) 51.2 % (45.0-75.0) Lymphocytes (%) (Auto) 29.0 % (20.0-45.0) Monocytes (%) (Auto) 8.1 % (1.0-10.0) Eosinophils (%) (Auto) 10.5 % (0.0-3.0) H Basophils (%) (Auto) 1.1 % (0.0-2.0) Sodium Level 138 MMOL/L (136-145) Potassium Level 4.3 MMOL/L (3.5-5.1) Chloride Level 106 MMOL/L (98-107) Carbon Dioxide Level 26 MMOL/L (21-32) Anion Gap 7 mmol/L (5-15) Blood Urea Nitrogen 35 mg/dL (7-18) H Creatinine 1.6 MG/DL (0.55-1.30) H Estimat Glomerular Filtration Rate 32.0 mL/min (>60) Glucose Level 148 MG/DL (74-106) H Calcium Level 8.7 MG/DL (8.5-10.1) Test 04/03/20 11:35 POC Whole Blood Glucose Pending Height (Feet): 5 Height (Inches): 2.00 Weight (Pounds): 209 Medications Current Medications Medications (Trade) Dose Ordered Sig/Dilip Route PRN Reason Start Time Stop Time Status Last Admin Dose Admin Acetaminophen (Tylenol) 650 mg Q6H PRN ORAL TEMP >100.4 03/31/20 17:45 04/30/20 17:44 Atorvastatin Calcium (Lipitor) 20 mg BEDTIME ORAL 03/30/20 21:00 06/28/20 20:59 04/02/20 20:56 Bisacodyl (Dulcolax) 10 mg BIDPRN PRN RECTAL Constipation 04/03/20 10:15 07/02/20 05:44 Dextrose (Dextrose 50%) 25 ml Q30M PRN IV Hypoglycemia 03/30/20 11:45 06/28/20 11:44 Dextrose (Dextrose 50%) 50 ml Q30M PRN IV Hypoglycemia 03/30/20 11:45 06/28/20 11:44 Diphenhydramine HCl (Benadryl) 25 mg Q6H PRN ORAL Itching 04/01/20 18:30 05/01/20 18:29 04/03/20 05:01 Docusate Sodium (Colace) 100 mg TWICE A DAY ORAL 04/03/20 09:00 05/03/20 08:59 04/03/20 08:54 Folic Acid (Folate) 1 mg DAILY ORAL 03/31/20 09:00 04/30/20 08:59 04/03/20 08:55 Gadobutrol (Gadavist) 7.5 mmol NOW PRN IV Radiology Procedure 04/02/20 14:30 04/06/20 14:29 Heparin Sodium (Porcine) (Heparin 5000 units/ml) 5,000 units EVERY 12 HOURS SUBQ 03/30/20 21:00 05/14/20 20:59 04/03/20 09:00 Ibuprofen (Motrin) 600 mg Q8H PRN ORAL For Pain 03/30/20 17:45 04/29/20 17:44 04/03/20 06:57 Insulin Aspart (NovoLOG) BEFORE MEALS AND HS SUBQ 03/30/20 16:30 06/28/20 16:29 04/03/20 06:06 Insulin Detemir (Levemir) 38 units BEDTIME SUBQ 03/30/20 21:00 06/28/20 20:59 Lidocaine (Lidoderm 5% PATCH) 1 patch DAILY TDERMAL 03/31/20 09:00 06/29/20 08:59 04/03/20 08:59 Magnesium Hydroxide (Mom) 30 ml TIDPRN PRN ORAL Constipation 04/03/20 10:00 05/03/20 09:59 04/03/20 10:22 Menthol/Methyl Salicylate (Bengay) 1 applic FOUR TIMES A DAY TOPIC 03/31/20 10:00 04/30/20 09:59 04/03/20 08:59 Ondansetron HCl (Zofran) 4 mg Q4H PRN IVP Nausea & Vomiting 03/30/20 23:00 04/29/20 22:59 04/02/20 07:04 Oxycodone/ Acetaminophen (Percocet 5-325) 1 tab Q6H PRN ORAL pain 03/30/20 23:00 04/06/20 22:59 04/02/20 20:56 Pioglitazone HCl (Actos) 45 mg DAILY ORAL 03/31/20 09:00 04/30/20 08:59 04/03/20 08:55 Sodium Phosphate (Fleet's Sodium Phosl Enema) 133 ml BIDPRN PRN RECTAL Constipation 04/03/20 10:15 05/03/20 05:44 Vitamin D (Vitamin D) 1,000 intlu DAILY ORAL 03/31/20 09:00 04/30/20 08:59 04/03/20 08:55 Assessment/Plan Assessment/Plan: Heme consultation note REQ MD: Raquel Doran [facility] Anemia ongoing DOS 04/03/2020 ID 69y old male recently moved into an apartment. She was trying to urinate hovering over the toilet and slipped. She Ann she twisted her ankle or fell on her leg twisting it she is unable to walk because of pain. She fractured her tibia in 2019. She was in rehab after that and healed completely. She denies hitting her head or loss of consciousness. There is no hip or back pain. She denies numbness. This happened just before calling 911 and being transported by [facility]. She reports the pain 9/10 at this time, aching. It is better when she is not trying to weight-bear or ambulate -which she cannot do. The patient is a type II diabetic but this is taking insulin. She denies polyuria or polydipsia. No fevers, chills, sore throat, chest pain, palpitations, nausea, vomiting, diarrhea, dysuria, abdominal pain, shortness of breath, rashes, depression, anxiety, visual changes, dizziness, headache. 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 [employer] Last Menstrual Period: UNK Now: No Reviewed Nursing Documentation: PMH: Agreed; PSxH: Agreed Nursing Documentation-PMH Past Medical History: No History, Except For Hx Diabetes: Yes - DM II Hx Cancer: Yes - L SIDED BREAST CANCER LUMPECTOMY Review of Systems All Other Systems: negative except mentioned in HPI Physical Exam: Vitals: reviewed General: NAD HEENT: nc, at Neck: supple Chest: clear breath sounds bilaterally Cardiovascular: RRR, no s3, s4 Abdomen: soft, nontender, nd Extremities: no cce, normal range of motion Neuro: alert and oriented Assessment and Recs # Anemia of chronic disease due to underlying chronic medical issues, multifactorial v Gi bleed --> Anemia workup has been ordered, rule out gi bleed --> No evidence of hemolysis is noted, peripheral smear has been reviewed. --> Hgb goal >7. Transfuse prn. --> Epogen or iron at this time is not particularly indicated --> Medications have been reviewed --> low threshold for gi evaluation in case has occult + --> bone marrow biopsy is not indicated given the other more likely causes # Breast CA ( Status post resection) --> with chemo and xrt as needed # DM2, ongoing --> hgb a1c goal <8 --> bs checks and insluin sliding scale coverage # Pyuria --> UA Increased LE and Mod Vinny seen; ucx MIXED UROGENITAL CONTAMINANTS, COLONY COUNT: >100,000 CFU/ML --> off abx # sp Fall # R foot pain, MRI R foot: fx 2019, mri noted The timing of this note does not necessarily reflect the time of the patient was seen. Greatly appreciate consultation. Sae Jason MD Apr 03, 2020 12:15
--- NOTE | 2020-04-03 12:34 | NUR ---
DISCHARGE PLANNING CALL MADE TO [facility] VAZQUEZ [phone]. S/W JULITO IN RE TO [facility]. JULITO CONFIRMED HH COVERED BENEFITS AND PROVIDED THE FOLLOWING CONTRACTED HH AGENCIES. [facility] P [phone] [facility] [phone] [facility] [phone] PATIENT HAS BEEN REFERRED TO [facility]
--- NOTE | 2020-04-03 12:51 | NUR ---
DISCHARGE PLANNING ORDER FOR FWW AND BEDSIDE COMMODE FAXED TO [place] [facility] [place] P [phone]
[2020-04-03 13:09] VITALS: BP 129/66
--- NOTE | 2020-04-03 15:25 | NUR ---
*-*DISCHARGE PLANNING*-* PATIENT HAS BEEN ACCEPTED WITH [facility] P [phone] S/W GILDA, WILL SERVICE PATIENT UPON DISCHARGE
--- NOTE | 2020-04-03 15:27 | NUR ---
NURSE NOTES: Diabetic cranberry juice was given. Pt has BM and said "I feel better." Will continue to monitor.
[2020-04-03 16:00] VITALS: BP 133/65
--- NOTE | 2020-04-03 16:30 | NUR ---
NURSE NOTES: Karen, case packer spoke to the patient. HH was set up and DME will be delivered to the hospital soon. Pt verbalized understanding.
--- NOTE | 2020-04-03 17:30 | NUR ---
NURSE NOTES: Patient received ankle lace up brace. Man from DME gave instruction to pt.
[2020-04-03 17:32] LABS: FERRITIN 125 NG/ML (8-388)
--- NOTE | 2020-04-03 18:14 | NUR ---
NURSE NOTES: Discharge instruction was given to pt. Pt verbalized understanding. Checked belongings list together and get sign. Pt got dressed up and waiting her caregiver.
[2020-04-03 18:36] LABS: % IRON SATURATION 11 % (15-50); IRON 36 ug/dL (50-175); TOTAL IRON BINDING CAPACITY 335 ug/dL (250-450)
--- NOTE | 2020-04-03 19:00 | NUR ---
NURSE NOTES: Patient discharged accompanied by caregiver. Removed IV line. Pt is stable.
--- NOTE | 2020-04-04 16:05 | Discharge Summary ---
Discharge Summary Discharge Summary _ DATE OF ADMISSION: 03/30/2020 DATE OF DISCHARGE: 04/03/2020 DISCHARGED BY: Dr Doran REASON FOR ADMISSION: 69 years old female with past medical history of diabetes mellitus, breast cancer, s/p lumpectomy, was trying to urinate at home in the bathroom, slipped and then twisted her right ankle and was unable to walk because of pain. Patient reported history of a fractured ankle in 2019 , which was healed completely . She denied hitting her head and loss of consciousness . No hip or back pain. Later in the emergency department patient reported pain 9 out of 10 , aching , unable to ambulate or bear weight. Upon evaluation she was slightly tachycardic, blood pressure was 157/83, no fevers Laboratory work-up revealed no leukocytosis. Stable electrolytes. BUN 30, creatinine 1.4. Troponin negative, pro BNP 99, EKG revealed incomplete right bundle branch block with left anterior fascicular block and left ventricular hypertrophy. X-ray of the right tibia-fibula reveal no radiographic evidence of acute fracture or dislocation. Severe generalized osteopenia. X-ray of the right ankle revealed no acute fracture or dislocation. Significant generalized osteopenia. Patient received IV hydration and admitted for further management. CONSULTANTS: orthopedic surgeon Dr. Pollack neurologist Dr. Bains ID specialist Dr. Cazares pain specialist Dr. Holt coil builder/oncologist Dr. Jason HOSPITAL COURSE: Patient admitted to medical surgical floor.. Pain management was addressed as per pain specialist recommendation. Orthopedic surgeon seen and evaluated patient . MRI of the right foot revealed no fracture or osteomyelitis. Mild subcutaneous soft tissue edema, predominantly in the dorsal midfoot and forefoot without fluid collection. Orthopedic surgeon recommended conservative treatment . Patient started physical therapy with weightbearing as tolerated. Fall precaution maintained. weightbearing provided as tolerated Surgeon also recommended cryotherapy and elevation of n the right lower extremity to decrease the swelling and pain.. Urine culture revealed mixed urogenital contaminant. ID specialist recommended to monitor patient off antibiotic , unless patient became persistently febrile or high fever , leukocytosis or other hemodynamic instability. Hemoglobin and hematocrit were closely monitored with goal to keep hemoglobin above 7, remained at baseline . Anemia work-up was consistent with anemia of chronic disease. Prior to discharge hemoglobin 10.6 , hematocrit 34.6. Patient clinically stabilized and was ready for discharge home with home health services. FINAL DIAGNOSES: Right ankle sprain Status post fall History of right ankle fracture , 2019 Diabetes mellitus Breast cancer , status post lumpectomy Anemia of chronic disease DISCHARGE MEDICATIONS: See Medication Reconciliation list. DISCHARGE INSTRUCTIONS: Patient was discharged home with home health services. Follow up with primary care provider in one week. I have been assigned to dictate discharge summary for this account. I was not involved in the patient's management. Lillie Fine NP Apr 04, 2020 16:05
--- NOTE | 2020-04-04 16:47 | NUR ---
INSURANCE FAXED TO DERIK PIZARRO FX [phone] PH [phone] FX [phone] PH [phone] Addendum: 04/04/20 at 1652 by Patsy Adair CM DC SUMMARY/INSTRUCTIONS/ 03/03 CLINICALS FAXED
== END 2020-04-03 18:57 | disposition home or self-care (01) | DRG 563 ==
LOC: EDBD 05:43 → EMR 06:13 → EDBEDREQ 09:21 → 3E 09:24
DX: S83.91XA Sprain of unspecified site of right knee, initial encounter (principal); N39.0 Urinary tract infection, site not specified; R33.9 Retention of urine, unspecified; E11.9 Type 2 diabetes mellitus without complications; Z85.3 Personal history of malignant neoplasm of breast; N28.9 Disorder of kidney and ureter, unspecified; Z88.6 Allergy status to analgesic agent; Z79.4 Long term (current) use of insulin; S93.401A Sprain of unspecified ligament of right ankle, initial encounter; W01.0XXA Fall on same level from slipping, tripping and stumbling without subsequent striking against object, initial encounter; Y92.031 Bathroom in apartment as the place of occurrence of the external cause; D63.8 Anemia in other chronic diseases classified elsewhere; E66.9 Obesity, unspecified; R26.2 Difficulty in walking, not elsewhere classified; M85.89 Other specified disorders of bone density and structure, multiple sites; Z68.38 Body mass index [BMI] 38.0-38.9, adult
CPT/HCPCS: 36415; 71045; 80048; 80053; 81003; 82550; 82728; 82962; 83540; 83550; 83880; 84484; 84550; 85025; 85610; 85651; 85730; 86140; 87040; 87086; 93005; 99285; J1815; J2405; S5561; U0002